=== PATIENT | female | born 1965 | race Caucasian/White ===

== ENCOUNTER → 2017-06-08 20:45 | Outpatient (CLI) | payer BC, SELFPAY ==
[2017-06-13 12:24] LABS: HPV Reflexed? NOT INDICATED
== END ==
PROVIDERS: Family Provider Family Medicine; PCP Family Medicine; Visit Provider Family Medicine
DX: Z01.419 Encounter for gynecological examination (general) (routine) without abnormal findings (principal)
CPT/HCPCS: 88175; G0145

== ENCOUNTER → 2017-06-15 10:57 | Outpatient (CLI) | payer BC, SELFPAY ==
[2017-06-15 16:54] LABS: Cholesterol 216 mg/dL (200); Follicle Stimulating Hormone 12.9 mIU/mL; High Density Lipoprotein 53 mg/dL; Thyroid Stim Hormone (TSH) 1.95 uIU/mL (0.358-3.74); Triglycerides 86 mg/dL; Very Low Density Lipoprotein 17 mg/dL (5-40)
== END ==
PROVIDERS: Family Provider Family Medicine; PCP Family Medicine; Visit Provider Family Medicine
DX: E03.9 Hypothyroidism, unspecified (principal); E78.00 Pure hypercholesterolemia, unspecified
CPT/HCPCS: 36415; 70486; 80061; 83001; 83002; 84439; 84443

== ENCOUNTER → 2018-09-06 15:32 | Outpatient (CLI) | payer BC, SELFPAY ==
[2018-09-06 18:37] LABS: Follicle Stimulating Hormone 10.3 mIU/mL; Luteinizing Hormone 2.9 mIU/mL; T4 Free Direct 1.23 ng/dL (0.76-1.46)
[2018-09-06 18:55] LABS: Vitamin D,25 Hydroxy 10.5 ng/mL (29.95-100.01)
== END ==
PROVIDERS: Family Provider Family Medicine; PCP Family Medicine; Referring Provider Family Medicine; Visit Provider Family Medicine
DX: Z00.00 Encounter for general adult medical examination without abnormal findings (principal); N92.6 Irregular menstruation, unspecified; E03.9 Hypothyroidism, unspecified; E55.9 Vitamin D deficiency, unspecified
CPT/HCPCS: 36415; 82306; 83001; 83002; 84439; 84443; 87086; 87088

== ENCOUNTER → 2018-09-15 | Outpatient (CLI) | payer BC, SELFPAY ==
--- NOTE | 2018-09-15 09:34 | BI_ITS ---
MAMMOGRAPHY - BILATERAL SCREENING REASON FOR EXAM: Female, 53 years old. Routine annual screening examination. PERTINENT HISTORY: Mother with breast cancer. Aunt with breast cancer. TECHNIQUE: Digital bilateral breast alexandru (3D mammographic acquisition) in the CC and MLO projections. 2-D mediolateral oblique (MLO) and craniocaudad (CC) views of both breasts were obtained. CAD: Full Field Digital Mammography with Computer Added Detection was performed. COMPARISON: Comparison is made with prior study dated March 23, 2015 and November 09, 2010. FINDINGS: Breast Composition: The breasts are heterogeneously dense, which may obscure small masses. There are no dominant masses or suspicious calcifications. No other significant abnormalities are identified. There has been no significant change since the prior study. BI/SCREENING MAMM (CAD), BILAT IMPRESSION: Stable bilateral screening mammogram. Yearly follow-up mammogram recommended. (A) ASSESSMENT CATEGORY: BIRADS Category 1: Negative. A letter regarding these results will be sent to the patient by the facility within 30 days. Approximately 10% of breast cancers are not detected by mammography. A normal mammogram should not delay biopsy of a clinically suspicious abnormality. [id number] Electronically Signed: Sawyer Lopez, at 8:42 EDT , Service support ,
== END | disposition home or self-care (01) ==
PROVIDERS: Family Provider Family Medicine; PCP Family Medicine; Referring Provider Family Medicine; Visit Provider Family Medicine
DX: Z12.31 Encounter for screening mammogram for malignant neoplasm of breast (principal)
CPT/HCPCS: 77063; 77067

== ENCOUNTER 2019-06-10 07:41 | Observation (INO) | payer BC, SELFPAY ==
[2019-06-10 07:42] VITALS: BP 153/125; PULSE 68; RESP 15; TEMP 36.7; O2SAT 98; BMI 31.7
--- NOTE | 2019-06-10 08:06 | US_ITS ---
STUDY: ABDOMINAL ULTRASOUND - RIGHT UPPER QUADRANT REASON FOR VISIT: Female, 53 years old RUQ PAIN TECHNIQUE: Ultrasound evaluation of the right upper quadrant was performed with real-time and static josé-scale imaging. TECHNICAL QUALITY: Adequate. COMPARISON: None. FINDINGS: Liver: The liver measures 17.2 cm. There is increased echogenicity consistent with fatty infiltration. The bile ducts are within normal limits. There is hepatic color flow. The direction of portal flow is hepatopetal. There is no demonstrated mass lesion. Gallbladder: Normal distended gallbladder. The gallbladder wall is slightly thickened and measures 4.0 mm. There is a positive sonographic Duran''s sign. There is no pericholecystic fluid. There is a solitary echogenic gallstone within the gallbladder. The gallstone is in the neck of the gallbladder. This measures 1.2 cm. Common Bile Duct (C.B.D.): The common bile duct measures 6.0 mm. Pancreas: Normal size of the head, body and tail of the pancreas. There is normal echogenicity of the pancreas. There is no demonstrated pancreatic mass or cyst. Right Kidney: Normal size of the right kidney. The right kidney measures 10.7 cm x 5.5 cm x 4.6 cm. Normal renal cortex. The right cortex measures 1.1 cm. There is no demonstrated renal mass or cyst. There is no right hydronephrosis. US/Gallbladder IMPRESSION: Gallstone in the neck of the gallbladder with a slightly thickened gallbladder wall. Fatty infiltration of the liver. Electronically Signed: Sawyer Lopez, at 10:38 EST , Service support ,
--- NOTE | 2019-06-10 08:07 | ED.DCSUM_ITS ---
History of Present Illness Chief Complaint: Abd Pain Informant: Patient - Abdominal Pain/Flank Pain Onset: Month(s) - This episode 8-10 hours Context: Gradual Onset Timing: Intermittent, Lasts - Until takes Gas-X Quality: Aching Location: Diffuse - Across top of abdomen, radiates straight through to her mid- back Current Severity: Severe Maximum Severity: Severe Worsened by: Nothing Relieved by: - - Gas-X every time this occurs, but I am out - Nausea/Vomiting/Emesis GI Symptom: Nausea, Vomiting Quality: Nonbilious. Negative for: Blood streaks, Coffee ground, Hematemesis Episodes: 3 - Diarrhea/Melena/Hematochezia GI Symptom: Negative for: Diarrhea, Melena, Hematochezia Associated Symptoms: Negative for: Dysuria, Frequency, Hematuria, Urgency Narrative: Patient states she has been getting these episodes for many years. She gets bloating which she is now as well. Symptoms usually go away with Gas-X. Given that, she has self diagnosed herself with just gas problems. She uses that as the reason why she has never talked about this issue with her doctor, even though she visits regularly, but they sometimes occur multiple times per week to the point where she has to stay home from work because she is in so much discomfort. She has no new symptoms now, but comes to the ER for the same symptoms she states because I am out of Gas-X. Prior similar symptoms: Yes Recent Illness/Hospitalization: No - Past Medical History (1) Hypothyroidism Status: Chronic Past Medical History - Allergies and Home Meds Allergies/Adverse Reactions: Allergies No Known Allergies Allergy (Verified 04/22/16 10:09) Primary Care Physician: Ian Garcia MD [Primary Care Provider] - Surgical History: - - BTL Lives: Spouse/ Significant Other Smoking Status: Former smoker Drugs: None Review of Systems General: Denies: Chills, Fever, Sweats Eyes: Denies: Visual changes - bilaterally, Diplopia ENT: Denies: Rhinorrhea, Sore throat Cardiovascular: Denies: Chest pain, Palpitations Respiratory: Denies: Dyspnea, Cough, Dyspnea on exertion Gastrointestinal: Reports: Abdominal pain - and bloating, Nausea, Vomiting. Denies: Diarrhea, Melena, Hematochezia Genitourinary: Denies: Dysuria, Hematuria, Frequency Musculoskeletal: Reports: Back pain. Denies: Extremity Pain Skin: Denies: Rash, Wounds Neurological: Denies: Headache, Weakness, Numbness Physical Exam Vital Signs/Narrative: Vital Signs Temp Pulse Resp BP Pulse Ox 06/10/19 07:42 98.1 F 68 15 153/125 H 98 Inital Vital Signs reviewed: Yes General: Well nourished, Well developed, No Acute Distress - but uncomfortable Head: Normocephalic, Atraumatic Eyes: Perrl, EOMI ENT: Moist mucous membranes, No rhinorrhea Neck: Supple, Nontender Cardiovascular: Regular rate, Regular rhythm, No murmurs Respiratory: No distress, CTA bilaterally, Chest nontender Abdomen: Soft, Normal bowel sounds, Tender - across upper abd, - - mildly distended. Negative for: Guarding, Rebound tenderness Back: Nontender, Normal Inspection. Negative for: CVA tenderness Extremities: Nontender, No edema Skin: Normal color, No rash Neurological: Alert, Oriented x3, Cranial nerves II-XII grossly intact, Normal Strength, Normal Sensation, Normal Gait Psychological: Normal affect, Normal Mood Diagnostic/Tx/Re-eval Impressions Gallbladder Ultrasound 06/10/19 08:06 IMPRESSION: Gallstone in the neck of the gallbladder with a slightly thickened gallbladder wall. Fatty infiltration of the liver. Electronically Signed: Sawyer Lopez, at 10:38 EST , Service support , 06/10/19 08:06 Gallbladder [US] Stat Laboratory Results 06/10/19 06/10/19 06/10/19 08:30 08:30 10:10 WBC 9.8 RBC 4.55 Hgb 13.9 Hct 41.7 MCV 91.6 MCH 30.5 MCHC 33.3 RDW Std Deviation 40.3 RDW Coeff of Wilbur 11.9 Plt Count 243 MPV 11.4 Immature Gran % (Auto) 0.400 Neut % (Auto) 80.2 H Lymph % (Auto) 13.3 L [place] % (Auto) 5.3 Eos % (Auto) 0.4 Baso % (Auto) 0.4 Absolute Neuts (auto) 7.9 H Absolute Lymphs (auto) 1.31 Nucleated RBC % 0 Sodium 139 Potassium 3.7 Chloride 109 H Carbon Dioxide 24.0 Anion Gap 6 BUN 11 Creatinine 0.90 Estim Creat Clear Calc 61.71 Est GFR (MDRD) Af Amer 84 Est GFR (MDRD) Non-Af 69 BUN/Creatinine Ratio 12.2 Glucose 120 H Calcium 8.8 Total Bilirubin 0.30 AST 14 L ALT 17 Alkaline Phosphatase 67 Total Protein 7.5 Albumin 3.4 Globulin 4.1 Albumin/Globulin Ratio 0.8 L Lipase 140 Urine Color Yellow Urine Clarity Sl. Cloudy Urine pH 8.0 Ur Specific [place] 1.010 Urine Protein Negative Urine Glucose (UA) Normal Urine Ketones 50 H Urine Occult Blood Negative Urine Nitrite Negative Urine Bilirubin Negative Urine Urobilinogen Normal Ur Leukocyte Esterase Negative Urine RBC 0 SEEN Urine WBC 0-5 SEEN Ur Squamous Epith Cells 0-5 SEEN Urine Bacteria 0 SEEN Urine Mucus 0 SEEN - Medical Decision Making Labs and ultrasound of the gallbladder were performed, she does not have any elevated liver enzymes or lipase, she does not have a leukocytosis at this time although her white blood count is at the high end of normal with a slight trend toward leftward shifting, no bandemia, and she has a gallstone stuck in the neck of the gallbladder with a positive sonographic Duran's. There is no dilation of the common bile duct or pericholecystic fluid to suggest that she obviously has acute cholecystitis at this time. She was given medications according to her symptoms and history, for upper GI/intestinal etiologies. After all of these medicines she feels no better, more consistent with biliary etiology of her pain. She was then given Toradol and morphine. Afterwards she has much improved and I reexamined her. She is still focally tender, now only in the right upper quadrant. Given all of this, my concern is for early cholecystitis. I discussed with Dr. Brooks who agrees; yanick ordered. ED Disposition - Plan for ED Patient: Disposition: Acute Care Hospital [facility] Diagnosis: Acute calculous cholecystitis Referrals: Ian Garcia MD [Primary Care Provider] -
[2019-06-10] MEDS: Ondansetron 4 MG/2 ML Vial IV (08:27)
[2019-06-10] MEDS: 0.9% Normal Saline 1,000 ML 125 ML IV ×2 (08:29→15:37)
[2019-06-10] MEDS: Mag Hydrox/Al Hydrox/Simeth 30 ML UDC PO ×2 (08:29→09:11)
[2019-06-10] MEDS: Dicyclomine 20 MG/2 ML Vial IM (08:29)
[2019-06-10 08:40] LABS: Absolute Lymphocyte Count 1.31 X10^3/uL (0.83-4.51); Absolute Neutrophil Count 7.9 X10^3/uL (2.0-7.7); Basophil# 0.04 X10^3/uL; Basophil% 0.4 % (0-1); Eosinophil# 0.04 X10^3/uL; Eosinophils% 0.4 % (0-5); Hematocrit 41.7 % (37-47); Hemoglobin 13.9 g/dL (12.0-15.0); Lymphocyte # 1.31 X10^3/ul (4.0); Lymphocyte % 13.3 % (19-41); Mean Corp Hgb Conc 33.3 g/dL (32-36); Mean Corpuscular Hgb 30.5 pg (27.0-32.0); Mean Corpuscular Volume 91.6 fL (81-99); Mean Platelet Vol. 11.4 fl (6.2-12.0); Monocyte# 0.52 X10^3/uL; Monocyte% 5.3 % (0-10); NRBC Flagged by Analyzer 0 % (0-5); Neutrophil # 7.87 X10^3/uL (2.7-7.7); Neutrophil % 80.2 % (47-70); Platelet Count 243 K/mm3 (150-450); RBC Distribution Width CV 11.9 % (11.6-14.6); RBC Distribution Width SD 40.3 fl (35.1-43.9); Red Blood Count 4.55 M/mm3 (4.2-5.4); White Blood Count 9.8 K/mm3 (4.4-11.0)
[2019-06-10 08:55] LABS: ALB/GLOB Ratio 0.8 RATIO (0.9-2.4); AST(SGOT) 14 U/L (15-37); Alanine Aminotransfer ALT/SGPT 17 U/L (13-56); Albumin, Serum 3.4 g/dL (3.2-5.0); Alkaline Phosphatase 67 U/L (45-117); Anion Gap 6 (5-15); BUN 11 mg/dL (7-18); BUN/Creat Ratio 12.2 RATIO (10-20); Calcium,Total 8.8 mg/dL (8.5-10.1); Chloride 109 mmol/L (98-107); EST Glomerular Filtration Rate 69 mL/min (>60); Est Glom Filt Rate - Afr Amer 84 mL/min (>60); Estimated Creatinine Clearance 61.71 ml/min; Globulin 4.1 g/dL (2.2-4.2); Glucose 120 mg/dL (74-106); Lipase 140 U/L (73-393); Potassium 3.7 mmol/L (3.5-5.1); Protein, Total 7.5 g/dL (6.4-8.2); Sodium Level 139 mmol/L (136-145)
[2019-06-10 10:18] LABS: Bacteria 0 SEEN /hpf (None Seen); Mucous, Urine 0 SEEN /hpf (<or=2+); Red Blood Cells-Urine 0 SEEN /hpf (0-5)
[2019-06-10 10:25] LABS: Color, Urine Yellow (Yellow); Glucose, Dipstick Normal (Normal); Ketone-Dipstick 50 mg/dl (Negative); Leukocyte Esterase-Dipstick Negative /ul (Negative); Nitrite-Dipstick Negative (Negative); Occult Blood-Urine Negative /ul (Negative); Protein-Dipstick Negative (Negative); Urine Bilirubin Dipstick Negative (Negative); Urine Clarity Sl. Cloudy (Clear); Urine Urobilinogen Normal (Normal)
[2019-06-10 10:47] LABS: Squamous Epithelial Cells - UA 0-5 SEEN /hpf (5-10); White Blood Cells 0-5 SEEN /hpf (0-5)
[2019-06-10 11:06] VITALS: RESP 18
[2019-06-10] MEDS: Morphine 4 MG/ML Syringe IV (12:01)
[2019-06-10] MEDS: Ketorolac 15 MG/ML Vial IV (12:01)
[2019-06-10 13:06] VITALS: RESP 18
--- NOTE | 2019-06-10 13:42 | HP.PCM_ITS ---
History of Present Illness Date of Admission: 06/10/19 The patient is a 53 year old F presented to the ER due to epigastric/right upper quadrant and mid back pain that began at 12:20 AM this morning. Patient also had bloating along with this. Patient has had this occasionally for the last couple of years. She is just taking Gas-X for is typically gone away however she did get some Gas-X and it did not improve and then she had some nausea and vomiting. Work-up in the ER showed a normal white blood count with a left shift, normal LFTs, ultrasound showed gallbladder wall of 4 mm, gallbladder stone at the neck of the gallbladder, no pericholecystic fluid, normal common bile duct. Patient also states she does have reflux symptoms any H2 inhibitors or Tums or PPI. Past Medical History Past Medical History (Chronic Problems): Chronic Problems Hypothyroidism (Chronic) Allergies No Known Allergies Allergy (Verified 04/22/16 10:09) Home Medications: Ambulatory Orders Medication Instructions Recorded Echinacea Root/Goldenseal Root 2 cap PO DAILY 06/10/19 [Echinac-Goldenseal 250-250 mg] Ibuprofen [Advil] 400 mg PO DAILY PRN PRN 06/10/19 Ibuprofen/Pseudoephedrine HCl 1 tab PO DAILY PRN PRN 06/10/19 [Advil Cold & Sinus Caplet] Levothyroxine Sodium 100 mcg PO DAILY 06/10/19 Norgestimate-Ethinyl Estradiol 1 tab PO DAILY 06/10/19 [Norg-Ee 0.18-0.215-0.25/0.025] Surgical History: - - Tube ligation Psychiatric History: 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 Denies: Diarrhea Genitourinary: Denies: Dysuria VTE Information - Inpt Only VTE Present on Admission: Yes VTE Mechan Device Prophylaxis: SCD's VTE Pharm Prophylaxis ordered?: No Reason prophylaxis not ordered:: Treatment Not Indicated Patient Problems: Active and Suspected Problems Acute calculous cholecystitis (Acute) - Physical Exam Vitals/I&O's: Vital Signs Temp Pulse Resp BP Pulse Ox 98.1 F 68 18 153/125 H 98 06/10/19 07:42 06/10/19 07:42 06/10/19 13:06 06/10/19 07:42 06/10/19 07:42 Oxygen Delivery Method Room Air Weight: 185 lb Body Mass Index (BMI) 31.7 General: Alert, Oriented x3, Cooperative, No apparent distress HEENT: Atraumatic Lungs: Normal air movement Cardiovascular: Regular rate Abdomen: Soft, Non-Distended, Tender - Minimal epigastric/right upper quadrant tenderness, no peritoneal signs Extremities: No clubbing, No cyanosis, No edema Neurological: Cranial nerves II-XII grossly intact Psych/Mental Status: Normal Affect Laboratory Results 06/10/19 08:30: WBC 9.8, RBC 4.55, Hgb 13.9, Hct 41.7, MCV 91.6, MCH 30.5, MCHC 33.3, RDW Std Deviation 40.3, RDW Coeff of Wilbur 11.9, Plt Count 243, MPV 11.4, Immature Gran % (Auto) 0.400, Neut % (Auto) 80.2 H, Lymph % (Auto) 13.3 L, [place] % (Auto) 5.3, Eos % (Auto) 0.4, Baso % (Auto) 0.4, Absolute Neuts (auto) 7.9 H, Absolute Lymphs (auto) 1.31, Nucleated RBC % 0 06/10/19 08:30: Sodium 139, Potassium 3.7, Chloride 109 H, Carbon Dioxide 24.0, Anion Gap 6, BUN 11, Creatinine 0.90, Estim Creat Clear Calc 61.71, Est GFR (MDRD) Af Amer 84, Est GFR (MDRD) Non-Af 69, BUN/Creatinine Ratio 12.2, Glucose 120 H, Calcium 8.8, Total Bilirubin 0.30, AST 14 L, ALT 17, Alkaline Phosphatase 67, Total Protein 7.5, Albumin 3.4, Globulin 4.1, Albumin/Globulin Ratio 0.8 L, Lipase 140 06/10/19 10:10: Urine Color Yellow, Urine Clarity Sl. Cloudy, Urine pH 8.0, Ur Specific [place] 1.010, Urine Protein Negative, Urine Glucose (UA) Normal, Urine Ketones 50 H, Urine Occult Blood Negative, Urine Nitrite Negative, Urine Bilirubin Negative, Urine Urobilinogen Normal, Ur Leukocyte Esterase Negative, Urine RBC 0 SEEN, Urine WBC 0-5 SEEN, Ur Squamous Epith Cells 0-5 SEEN, Urine Bacteria 0 SEEN, Urine Mucus 0 SEEN Current Medications Sodium Chloride () 1,000 mls @ 125 mls/hr IV .Q8H MAHI Last Admin: 06/10/19 08:29 Dose: 125 mls/hr Documented by: Assessment/Plan All Active Problems Acute calculous cholecystitis (Acute) 53-year-old female with acute calculus cholecystitis 1. N.p.o./IV fluids/Zosyn 3.375 g IV every 8 for acute cholecystitis 2. Reviewed the anatomy with the patient and discussed the procedure: laparoscopic cholecystectomy with possible cholangiograms, possible open. Review risks including but not limited to bleeding, infection, hernia, bile leak, retained gallstones requiring another procedure ERCP- Endoscopic Retrograde Cholangiopancreatography, injury to another organ (bile ducts, common bile duct, small bowel, etc.) which may require her to a tertiary care facility and conversion to an open procedure. All questions were answered. Lianna Brooks M.D. Pager: [phone] [facility] [address] [place] [address], [facility], [address] [place] [address] Office: [phone] Code Visit Inpatient E&M: 70752 Init Hosp L2
--- NOTE | 2019-06-10 13:50 | EKG12_ITS ---
Test Reason : PREOP Blood Pressure : / mmHG Vent. Rate : 067 BPM Atrial Rate : 067 BPM P-R Int : 110 ms QRS Dur : 078 ms QT Int : 458 ms P-R-T Axes : 058 026 039 degrees QTc Int : 483 ms Sinus rhythm with short WI Prolonged QT Abnormal ECG No previous ECGs available Confirmed by BARBARA HOSKINS, SAFIA ([id number]), assignment desk editor PARVEZ MCKEON ([id number]) on 06/24/2019 2:48:54 PM Referred By: MAMADOU Confirmed By:LIZET JIMENEZ MD
[2019-06-10 14:32] VITALS: BMI 32.3
[2019-06-10 14:33] VITALS: BP 138/69; PULSE 60; RESP 16; TEMP 36.9; O2SAT 100
[2019-06-10 14:34] VITALS: BMI 32.4
[2019-06-10] MEDS: HYDROmorphone 0.5 MG/0.5 ML SYRINGE IV (15:37)
[2019-06-10 20:30] VITALS: BP 104/60; PULSE 75; RESP 16; TEMP 36.8; O2SAT 98
[2019-06-11] VITALS (12 sets, daily range): BP systolic 103–135; BP diastolic 55–72; PULSE 71–91; RESP 16–18; TEMP 36.2–37.6; O2SAT 94–98; BMI 32.3
--- NOTE | 2019-06-11 | GALL_PTH ---
PATIENT: KRYSTINA GILBERT LOC: MS3 U#:[id number] AGE/SX: 53/F ROOM: [facility] [place] RE06/10/[address]: Dr. Lianna Brooks MD : [id number] BED: 1 DIS: 06/11/2019 SPEC #: [id number] RECD: 06/11/19 13:59 STATUS: LEOPOLDO REThao #: [id number] REGULO: 06/11/19 00:[address]: Lianna Brooks DEPT: SURGICAL PATHOLOGY RECD BY: Isidoro Munoz ENTERED: 06/11/19 14:32 SP TYPE: KHALIDA CHONG DR: Dr. Timothy Garcia MD Tissues: Gallbladder, NOS Procedures: Surgery Specimen Level III HEADER OPERATION: Laparoscopic, cholecystectomy with IOC PRE-OP DIAGNOSIS: Acute calculous cholecystitis (acute) TISSUE SUBMITTED: Gallbladder MICROSCOPIC DIAGNOSIS Gallbladder, cholecystectomy: Cholesterolosis, acute and chronic cholecystitis and cholelithiasis. AM:steve 06/12/19 MICROSCOPIC DESCRIPTION Slides are reviewed. GROSS DESCRIPTION Received is one container labeled with the patient's name and designated gallbladder. The specimen consists of a gallbladder measuring 9.5 cm in length and up to 4 cm in diameter. The serosa is congested. The external surface is pink-ch, smooth and glistening for the most part. Focally it is granular, hemorrhagic and contains cautery artifact. The gallbladder contains hemorrhagic bile and one avoid, greenish-yellow stone measuring 2 x 1.5 x 1.5 cm. The mucosa also shows several yellowish streaks consistent with cholesterolosis. The mucosa is bile-stained and without any mass lesions. The gallbladder wall measures up to 0.3 cm in thickness. Bucket Pusher sections from the gallbladder and the cystic duct are submitted in one cassette. / SJ:steve 06/11/19 TC:2 CPT: 56467
[2019-06-11] MEDS: Ketorolac 15 MG/ML Vial IV (04:52)
[2019-06-11] MEDS: 0.9% Normal Saline 1,000 ML 125 ML IV (04:55)
[2019-06-11 05:55] LABS: Absolute Lymphocyte Count 1.84 X10^3/uL (0.83-4.51); Absolute Neutrophil Count 5.9 X10^3/uL (2.0-7.7); Basophil# 0.05 X10^3/uL; Basophil% 0.6 % (0-1); Eosinophils% 1.2 % (0-5); Hematocrit 37.6 % (37-47); Lymphocyte # 1.84 X10^3/ul (4.0); Lymphocyte % 21.5 % (19-41); Mean Corp Hgb Conc 31.9 g/dL (32-36); Mean Corpuscular Hgb 29.8 pg (27.0-32.0); Mean Corpuscular Volume 93.3 fL (81-99); Monocyte# 0.62 X10^3/uL; Monocyte% 7.3 % (0-10); NRBC Flagged by Analyzer 0 % (0-5); Neutrophil # 5.92 X10^3/uL (2.7-7.7); Neutrophil % 69.3 % (47-70); Platelet Count 195 K/mm3 (150-450); RBC Distribution Width CV 12.4 % (11.6-14.6); RBC Distribution Width SD 42.7 fl (35.1-43.9); Red Blood Count 4.03 M/mm3 (4.2-5.4); White Blood Count 8.5 K/mm3 (4.4-11.0)
[2019-06-11 06:23] LABS: AST(SGOT) 11 U/L (15-37); Alanine Aminotransfer ALT/SGPT 13 U/L (13-56); Albumin, Serum 2.5 g/dL (3.2-5.0); Alkaline Phosphatase 59 U/L (45-117); Anion Gap 7 (5-15); BUN 6 mg/dL (7-18); BUN/Creat Ratio 7.2 RATIO (10-20); Bilirubin, Direct 0.12 mg/dL (0.00-0.30); Calcium,Total 7.5 mg/dL (8.5-10.1); Chloride 110 mmol/L (98-107); Creatinine, Serum 0.83 mg/dL (0.55-1.02); EST Glomerular Filtration Rate 76 mL/min (>60); Est Glom Filt Rate - Afr Amer 92 mL/min (>60); Estimated Creatinine Clearance 66.91 ml/min; Globulin 3.6 g/dL (2.2-4.2); Glucose 95 mg/dL (74-106); Potassium 3.7 mmol/L (3.5-5.1); Protein, Total 6.1 g/dL (6.4-8.2); Sodium Level 140 mmol/L (136-145); Thyroid Stim Hormone (TSH) 2.91 uIU/mL (0.358-3.74)
--- NOTE | 2019-06-11 08:06 | PN.SURG_ITS ---
Patient Problems: Active and Suspected Problems Acute calculous cholecystitis (Acute) Subjective: Patient denies abdominal pain pain has been controlled with Toradol. Patient's white blood count still within normal limits with resolution of the left shift patient is on Zosyn IV - Physical Exam Vitals/I&O's: Vital Signs Temp Pulse Resp BP Pulse Ox 98.5 F 71 16 103/55 L 95 06/11/19 02:30 06/11/19 02:30 06/11/19 02:30 06/11/19 02:30 06/11/19 02:30 Oxygen Delivery Method Room Air Weight: 188 lb 7.924 oz Body Mass Index (BMI) 32.3 Intake and Output for Last 24 Hours 06/09/19 06/10/19 06/11/19 23:59 23:59 23:59 Intake Total 2151.67 / 2151.67 50 / 50 Output Total 650 / 650 Balance 2151.67 / 1901.67 -600 / -600 General: Alert, Oriented x3, Cooperative, No apparent distress Lungs: Normal air movement Cardiovascular: Regular rate Abdomen: Soft, Non Tender, Non-Distended Extremities: No clubbing, No cyanosis, No edema Neurological: Cranial nerves II-XII grossly intact Psych/Mental Status: Normal Affect Laboratory Results 06/10/19 08:30: WBC 9.8, RBC 4.55, Hgb 13.9, Hct 41.7, MCV 91.6, MCH 30.5, MCHC 33.3, RDW Std Deviation 40.3, RDW Coeff of Wilbur 11.9, Plt Count 243, MPV 11.4, Immature Gran % (Auto) 0.400, Neut % (Auto) 80.2 H, Lymph % (Auto) 13.3 L, [place] % (Auto) 5.3, Eos % (Auto) 0.4, Baso % (Auto) 0.4, Absolute Neuts (auto) 7.9 H, Absolute Lymphs (auto) 1.31, Nucleated RBC % 0 06/10/19 08:30: Sodium 139, Potassium 3.7, Chloride 109 H, Carbon Dioxide 24.0, Anion Gap 6, BUN 11, Creatinine 0.90, Estim Creat Clear Calc 61.71, Est GFR (MDRD) Af Amer 84, Est GFR (MDRD) Non-Af 69, BUN/Creatinine Ratio 12.2, Glucose 120 H, Calcium 8.8, Total Bilirubin 0.30, AST 14 L, ALT 17, Alkaline Phosphatase 67, Total Protein 7.5, Albumin 3.4, Globulin 4.1, Albumin/Globulin Ratio 0.8 L, Lipase 140 06/10/19 10:10: Urine Color Yellow, Urine Clarity Sl. Cloudy, Urine pH 8.0, Ur Specific [place] 1.010, Urine Protein Negative, Urine Glucose (UA) Normal, Urine Ketones 50 H, Urine Occult Blood Negative, Urine Nitrite Negative, Urine Bilirubin Negative, Urine Urobilinogen Normal, Ur Leukocyte Esterase Negative, Urine RBC 0 SEEN, Urine WBC 0-5 SEEN, Ur Squamous Epith Cells 0-5 SEEN, Urine Bacteria 0 SEEN, Urine Mucus 0 SEEN 06/11/19 05:10: WBC 8.5, RBC 4.03 L, Hgb 12.0, Hct 37.6, MCV 93.3, MCH 29.8, MCHC 31.9 L, RDW Std Deviation 42.7, RDW Coeff of Wilbur 12.4, Plt Count 195, MPV 12.0, Immature Gran % (Auto) 0.100, Neut % (Auto) 69.3, Lymph % (Auto) 21.5, [place] % (Auto) 7.3, Eos % (Auto) 1.2, Baso % (Auto) 0.6, Absolute Neuts (auto) 5.9, Absolute Lymphs (auto) 1.84, Nucleated RBC % 0 06/11/19 05:10: Sodium 140, Potassium 3.7, Chloride 110 H, Carbon Dioxide 23.0, Anion Gap 7, BUN 6 L, Creatinine 0.83, Estim Creat Clear Calc 66.91, Est GFR (MDRD) Af Amer 92, Est GFR (MDRD) Non-Af 76, BUN/Creatinine Ratio 7.2 L, Glucose 95, Calcium 7.5 L, Total Bilirubin 0.50, Direct Bilirubin 0.12, AST 11 L, ALT 13, Alkaline Phosphatase 59, Total Protein 6.1 L, Albumin 2.5 L, Globulin 3.6, TSH 2.91 Current Medications Hydromorphone HCl (Dilaudid Inj) 0.5 - 1 mg IV Q2H PRN PRN PRN Reason: Pain Score 1-02/07 Last Admin: 06/10/19 15:37 Dose: 0.5 mg Documented by: Piperacillin Sod/Tazobactam (Sod 3.375 gm/ Sodium Chloride) 50 mls @ 12.5 mls/hr IV Q8 [facility] Last Admin: 06/11/19 04:55 Dose: 12.5 mls/hr Documented by: Pantoprazole Sodium 40 mg/ (Sodium Chloride) 110 mls @ 330 mls/hr IV Q24 [facility] Sodium Chloride () 1,000 mls @ 125 mls/hr IV .Q8H [facility] Last Admin: 06/11/19 04:55 Dose: 125 mls/hr Documented by: Ketorolac Tromethamine (Toradol (Bkc)) 15 mg IV Q6H PRN PRN PRN Reason: Pain Score 1-02/07 Last Admin: 06/11/19 04:52 Dose: 15 mg Documented by: Levothyroxine Sodium (Synthroid) 100 mcg PO DAILY@0600 [facility] Last Admin: 06/11/19 04:55 Dose: Not Given Documented by: Ondansetron HCl (Zofran) 4 mg IV Q8H PRN PRN PRN Reason: NAUSEA Sodium Chloride () 10 - 40 ml IV UD PRN PRN Reason: SALINE FLUSH Medical Necessity - Tobacco Use Smoking Status: Former smoker Tobacco Use: Cigarettes Assessment/Plan All Active Problems Acute calculous cholecystitis (Acute) 53-year-old female with acute calculus cholecystitis 1. N.p.o./IV fluids/Zosyn 3.375 g IV every 8 for acute cholecystitis 2. Plan for laparoscopic cholecystectomy today Lianna Brooks M.D. Pager: [phone] [facility] [address] [place] [address], [facility], [address] [place] [address] Office: [phone] Code Visit Inpatient E&M: 79855 Subs Hosp L1
[2019-06-11] MEDS: Lactated Ringers 1,000 ML 100 ML IV ×2 (11:15→12:58)
[2019-06-11] MEDS: Bupivacaine Mpf 0.5% 30 ML VIAL (11:50)
--- NOTE | 2019-06-11 12:16 | OP.PCM_ITS ---
Report of Operation Date of Procedure: 06/11/19 Pre-Operative Diagnosis: Acute calculus cholecystitis Post-Operative Diagnosis: Same Surgery/Procedure Performed:: Laparoscopic cholecystectomy with cholangiograms catalytic converter operator helper: Sonja Leyva Type of Anesthesia:: General/Supplemental Anesthesiologist: Cody Gil Special Medications: Patient on Zosyn 3.375 g IV every 8 hours on the floor for acute cholecystitis Specimen's removed: Gallbladder Estimated Blood Loss (mL): 10 cc Fluids Replaced: 700 cc Description of Procedure: Indications this is a 53 year-old female who developed abdominal pain/nausea/vomiting and on workup was found to have cholelithiasis, acute cholecystitis, with a normal common bile duct. Laparoscopic cholecystectomy was elected. Description procedure: The patient was placed on operating table in supine position. General Anesthesia was induced. A timeout was completed verifying correct patient, procedure, site, position and special equipment prior to beginning procedure. The abdomen was prepped and draped in usual sterile fas hion. An incision was made in the natural skin line above the umbilicus. The fascia was elevated and incised. The peritoneum was elevated and incised. Entry into the peritoneum was confirmed visually and no bowel was noted in the vicinity of the incision. Barnard trocar was placed. The abdomen was insufflated with carbon dioxide to a pressure of 12-15 mmHg. Patient tolerated insufflation well. The laparoscope was then inserted and abdomen inspected. No injuries from initial trocar placement were noted. Additional trochars were then inserted in the following locations 5 mm trocar in the epigastrium and 2 more 5 mm trochars along the right costal margin. The abdomen was inspected no abnormalities were found. The table is placed in reverse Trendelenburg position with the right side up. The gallbladder was distended and the mucosa was erythematous. An aspiration needle was used to decompress the gallbladder. The adhesions between the gallbladder and omentum were lysed sharply. The dome of the gallbladder was grasped with atraumatic grasper passed through the lateral port and retracted over the dome of the liver. Infundibulum was then grasped with atraumatic grasper through the midclavicular port and retracted to the right lower quadrant. This maneuver exposed Calot's triangle. The peritoneum overlying the gallbladder infundibulum was then incised and cystic duct and artery identified and circumferentially dissected. Batista catheter was used for cholangiograms. The cholangiogram showed good filling of the common bile duct into the duodenum with no filling defects, good filling of the right and left bile ducts as well. The cystic duct and artery were then doubly clipped and divided close to the gallbladder. The gallbladder then dissected from its peritoneal attachments by electrocautery. Hemostasis was checked and the gallbladder and contained stones were removed using the endoscopic retrieval bag through the umbilical port. The gallbladder is passed off table as specimen. The gallbladder fossa was copiously irrigated with saline and hemostasis obtained. There is no evidence of bleeding from the gallbladder fossa or cystic artery leakage of bile from the cystic duct stump. Secondary trochars removed under direct vision. No bleeding was noted the trocar sites. The laparoscope was withdrawn and umbilical trocar removed. The abdomen was allowed to collapse. The fascia of the 12 mm trocar was closed with a [id number] 0 Vicryl suture. The skin was closed with sutures of 4-0 Monocryl and Steri-Strips. The orogastric tube was removed and the patient was extubated. The patient tolerated procedure well and was taken to the postanesthesia care unit in stable condition. - Complications none
--- NOTE | 2019-06-11 12:17 | NURSING ---
Student documentation reviewed.
--- NOTE | 2019-06-11 12:19 | DCINST_ITS ---
Discharge Diet: Light diet - advance as tolerated Discharge Activity: May not drive while taking narcotic pain medications. May shower in (days): 1 - Keep Steri-Strips on for 7 to 10 days and then drop off in 10 days okay to remove Lifting Restrictions: No lifting greater than 20 pounds x 2 weeks Call your doctor if your incision/area has: Continuous Slow Oozing, Sudden Increased Bleeding, Increased Pain/ Swelling, Increased Redness, Foul Smelling Discharge, Swelling at the incision site Call your doctor if you observe: Fever of 101 or Higher Remove Dressing in (days):: 1 - Okay to remove op sites tomorrow keep Steri's on for 7 to 10 days, okay to remove after 10 days Additional Instructions: Okay to take ibuprofen 400-600 mg PO q6hr PRN along with the Percocet. Avoid Tylenol since there is already Tylenol in the Percocet. Take all pain meds with food. Percocet can cause constipation recommend taking daily stool softener (i.e. Colace/docusate) while taking the pain meds. Recommend starting some MiraLAX in 1 to 2 days if no bowel movement. If still no bowel movement following day recommend taking magnesium citrate half the bottle and waiting 4-6 hours if still no results take the other half the bottle. Allergies/Adverse Reactions: Allergies No Known Allergies Allergy (Verified 04/22/16 10:09) Medications to take at Discharge Echinacea Root/Goldenseal Root [Echinac-Goldenseal 250-250 mg] 2 cap PO DAILY 06/10/19 Ibuprofen [Advil] 400 mg PO DAILY PRN PRN 06/10/19 Ibuprofen/Pseudoephedrine HCl [Advil Cold & Sinus Caplet] 1 tab PO DAILY PRN PRN 06/10/19 Levothyroxine Sodium 100 mcg PO DAILY 06/10/19 Norgestimate-Ethinyl Estradiol [Norg-Ee 0.18-0.215-0.25/0.025] 1 tab PO DAILY 06/10/19 Oxycodone HCl/Acetaminophen [Percocet 5/325] 1 - 2 tab PO Q6H PRN PRN 4 Days #20 tab 06/11/19 Pantoprazole Sodium 40 mg PO DAILY #30 tablet. 06/11/19 The following prescriptions were given: Pantoprazole Sodium 40 mg PO DAILY #30 tablet.dr Transmission Status: Sent to [facility] Oxycodone HCl/Acetaminophen [Percocet 5/325] 1 - 2 tab PO Q6H PRN PRN 4 Days #20 tab PRN Reason: Pain Transmission Status: Sent to [facility] Primary Care Physician: Ian Garcia MD [Primary Care Provider] - Test Results: Test results from this visit will be discussed in further detail at your follow- up appointment, if applicable. Please Follow Up With: Lianna Brooks MD - After 5 PM and on the weekends call [phone] with any concerns When: Call the office [phone] for a follow-up in 2 weeks Proposed Discharge Date: 06/11/19
[2019-06-11] MEDS: proMETHazine 25 MG/ML Syringe 12.5 MG IV (13:02)
--- NOTE | 2019-06-11 14:20 | RAD_ITS ---
STUDY: INTRAOPERATIVE CHOLANGIOGRAM. REASON FOR EXAM: Female, 53 years old. RUQ pain -- lap megan FLUOROSCOPY TIME (if supplied): ( 7.9 seconds ) minutes/seconds TECHNIQUE: N IntraDop Cholangiogram was performed by the surgeon. Imaging was submitted. COMPARISON: None. FINDINGS: The intrahepatic biliary ducts are unremarkable. The common bile duct is not dilated. There is free flow of contrast into the duodenum. RAD/Cholangiogram/ O R,Initial IMPRESSION: Unremarkable intraoperative cholangiogram. Electronically Signed: Sawyer Lopez, at 8:34 EST , Service support ,
== END 2019-06-11 19:50 | disposition home or self-care (01) ==
LOC: ED 13:05 → MS3 14:49
PROVIDERS: Admitting Provider Surgery; Emergency Provider Emergency Medicine; PCP Family Medicine; Visit Provider Surgery
PROC: (CPT 47610; principal; 2019-06-11 14:00)
DX: R10.9 Unspecified abdominal pain (principal); K80.12 Calculus of gallbladder with acute and chronic cholecystitis without obstruction; E03.9 Hypothyroidism, unspecified; Z79.899 Other long term (current) drug therapy; Z87.891 Personal history of nicotine dependence
CPT/HCPCS: 00790; 47563; 36415; 74300; 76000; 76705; 80048; 80053; 80076; 81001; 83690; 84443; 85025; 88304; 93005; 96361; 96365; 96366; 96367; 96372; 96375; 96376; 99218; 99251; 99284; J7030; J7120; A4216; G0378; G0463; J2405

== ENCOUNTER → 2020-02-14 | Outpatient (CLI) | payer BC, SELFPAY ==
[2019-06-11 10:29] VITALS: BMI 32.3
== END | disposition home or self-care (01) ==
PROVIDERS: PCP Family Medicine; Visit Provider Family Medicine
DX: J32.9 Chronic sinusitis, unspecified (principal)
CPT/HCPCS: 87635; U0003

== ENCOUNTER 2020-04-22 16:30 | Outpatient (RCR) | payer BC, SELFPAY ==
[2019-06-11 10:29] VITALS: BMI 32.3
--- NOTE | 2020-02-05 15:56 | HP.PTEVAL ---
Patient's Visit Information KRYSTINA GILBERT is a 54 year old F referred to Physical Therapy by Dr. Ian Garcia MD with a diagnosis of Adhesive capsulitis, R labral tear. Date of Evaluation: 01/29/20 Physical Therapist: Jimbo Wright DPT - Visit Plan Frequency: 1-2x /Week Duration: 6 Weeks Plan: Plan to inc R shoulder ROM and strength while facilitating a dec in pain. Initially work on increasing PROM and progressing into AROM and strengthening w/ the new available range. - Subjective Pt presented for eval this date w/ c/o R shoulder pain. 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 Dr diagnosed her w/ a R labral tear and adhesive capsulitis. Was supposed to have surgical manipulation done in July but decided not to. Had massage therapy in September and October and believes that is helped a lot w/ pain and ROM. Denies having sleeping issues d/t pain. States she had to stop going to yoga after injury, but would like to return. Pt's main concerns are returning to yoga and being able to reach into cabinets overhead. Takes Aleve PRN. - Pain R shoulder Pain Intensity (Out of 10): 0 Pain Intensity Range: 0, 3 - Objective POSTURE: WNL. PALPATION: WNL. ROM: R shoulder flex 114 deg, ext 14 deg, abd 90 deg, IR 62 deg, ER 29 deg. Empty end-feels d/t pain at end-range in all planes. MMT: R shoulder ext/IR 4+/5, flex/abd 4-/5, ER 3+/5. L shoulder ext 5/5, flex/abd/IR 4+/5, ER 4-/5. No c/o of pain during testing. NEURO: Denies n/t, WNL. - Goals Goal 1:: LTG: Pt to be I w/ HEP. Goal Time Frame: 4-6 Weeks Goal 2:: STG: Pt will display inc R shoulder ROM by 10% in all planes. Goal Time Frame: 2-4 Weeks Goal 3:: LTG: Pt will display inc R shoulder ROM by 25% in all planes. Goal Time Frame: 4-6 Weeks Goal 4:: LTG: Pt will display inc R shoulder strength by 1/2 grade throughout. Goal Time Frame: 4-6 Weeks Goal 5:: LTG: Pt will report no R shoulder pain w/ daily activities. Goal Time Frame: 4-6 Weeks - Rehabilitation Potential Physical Therapy Diagnosis: S/s consistent w/ R shoulder adhesive capsulitis and R shoulder labral tear. Pt displays dec R shoulder strength, dec ROM, and inc pain. PT intervention indicated to address stated deficits and improve R shoulder strength, ROM, and facilitate reduced pain. Rehabilitation Potential: Good - Anticipated Interventions Patient/Client Instruction: Educate patient on: Condition, Plan of Care, Risk Factors, Benefits of Fitness Program For the Purpose of:: To facilitate caregiver knowledge, To improve self management, To prevent re-injury, To improve ability to perform tasks related to life management, To improve tolerance to ADL's Therapeutic Exercise to Include: Strength training, Power training, Endurance training, Flexibilty training, Passive ROM, Active ROM, Marian Exercises, Scapular Strength/Stabilization For the Purpose of:: To decrease pain, To decrease swelling/inflammation, To increase ROM, To improve nutrient delivery to tissue, To increase oxygenation perfusion, To improve muscle performance and motor function, To improve health of tissue, To decrease soft tissue restriction, To increase flexibility/ROM Manual Therapy Techniques to Include: Mobilization, Manipulation, Passive ROM, Soft tissue mobilization For the Purpose of:: To decrease pain, To decrease swelling/inflammation, To increase ROM, To improve nutrient delivery to tissue, To increase oxygenation perfusion, To improve muscle performance and motor function Cryotherapy (ice pack, ice massage): Yes Thermo therapy (hot pack): Yes For the Purpose of:: To decrease pain, To increase ROM, To improve nutrient delivery to tissue, To increase oxygenation perfusion, To improve muscle performance and motor function Thank you for the opportunity to evaluate your patient. For Medicare and Medicare HMO plans, please review the plan of care and approve it. It will need to be FAXED BACK to us at [phone] for Medicare purposes. For Medicare only, by signing this I certify the plan of care. Please let me know if there are questions or concerns regarding this plan of care. Physician Signature: Date:
== END 2020-04-22 19:00 | disposition home or self-care (01) ==
LOC: PT 16:30
PROVIDERS: PCP Family Medicine; Referring Provider Family Medicine; Visit Provider Family Medicine
DX: M75.01 Adhesive capsulitis of right shoulder (principal); S43.431D Superior glenoid labrum lesion of right shoulder, subsequent encounter
CPT/HCPCS: 97110; 97140; 97161

== ENCOUNTER 2020-07-31 14:39 | Outpatient (RCR) | payer BC, SELFPAY ==
[2019-06-11 10:29] VITALS: BMI 32.3
== END 2020-10-06 23:59 ==
LOC: IMMUN 14:39
PROVIDERS: PCP Family Medicine; Visit Provider Family Medicine
DX: Z23 Encounter for immunization (principal)
CPT/HCPCS: 0001A; 0002A; 91300

== ENCOUNTER → 2020-08-05 | Outpatient (CLI) | payer BC, SELFPAY ==
[2019-06-11 10:29] VITALS: BMI 32.3
[2020-08-10 16:20] LABS: HPV Reflexed? NOT INDICATED
== END | disposition home or self-care (01) ==
LOC: LABSPEC 14:34
PROVIDERS: PCP Family Medicine; Referring Provider Family Medicine; Visit Provider Family Medicine
DX: Z01.419 Encounter for gynecological examination (general) (routine) without abnormal findings (principal)
CPT/HCPCS: 88175; G0145

== ENCOUNTER → 2021-04-14 09:01 | Outpatient (CLI) | payer BC, SELFPAY ==
[2021-04-14 10:15] LABS: Absolute Lymphocyte Count 1.55 X10^3/uL (0.83-4.51); Absolute Neutrophil Count 3.4 X10^3/uL (2.0-7.7); Basophil# 0.05 X10^3/uL; Basophil% 0.9 % (0-1); Eosinophil# 0.15 X10^3/uL; Eosinophils% 2.7 % (0-5); Hematocrit 41.4 % (37-47); Hemoglobin 13.3 g/dL (12.0-15.0); Lymphocyte # 1.55 X10^3/ul (0.83-4.51); Mean Corp Hgb Conc 32.1 g/dL (32-36); Mean Corpuscular Volume 93.2 fL (81-99); Mean Platelet Vol. 11.6 fl (6.2-12.0); Monocyte# 0.41 X10^3/uL; Monocyte% 7.4 % (0-10); NRBC Flagged by Analyzer 0 % (0-5); Neutrophil # 3.36 X10^3/uL (2.7-7.7); Neutrophil % 60.8 % (47-70); Platelet Count 256 K/mm3 (150-450); RBC Distribution Width CV 12.2 % (11.6-14.6); RBC Distribution Width SD 42.1 fl (35.1-43.9); Red Blood Count 4.44 M/mm3 (4.2-5.4); White Blood Count 5.5 K/mm3 (4.4-11.0)
[2021-04-14 10:52] LABS: AST(SGOT) 14 U/L (15-37); Alanine Aminotransfer ALT/SGPT 19 U/L (13-56); Amylase 51 U/L (25-115); Anion Gap 9 (5-15); BUN 8 mg/dL (7-18); Calcium,Total 8.6 mg/dL (8.5-10.1); Chloride 106 mmol/L (98-107); EST Glomerular Filtration Rate 78 mL/min (>60); Est Glom Filt Rate - Afr Amer 95 mL/min (>60); Glucose 92 mg/dL (74-106); Lipase 186 U/L (73-393); Potassium 3.5 mmol/L (3.5-5.1); Sodium Level 139 mmol/L (136-145); Thyroid Stim Hormone (TSH) 5.74 uIU/mL (0.358-3.74)
== END ==
LOC: MFPLAB 09:03
PROVIDERS: PCP Family Medicine; Referring Provider Family Medicine; Visit Provider Registered Nurse
DX: R10.9 Unspecified abdominal pain (principal); E03.9 Hypothyroidism, unspecified
CPT/HCPCS: 36415; 80048; 82150; 83690; 84443; 84450; 84460; 85025

== ENCOUNTER → 2021-04-14 13:54 | Outpatient (CLI) | payer BC, SELFPAY ==
--- NOTE | 2021-04-14 16:20 | CT_ITS ---
INDICATION: ABD PAIN EXAMINATION: CT Abdomen And Pelvis W/ Contrast Injection TECHNIQUE: Helically acquired images were obtained of the abdomen and pelvis after IV contrast. A radiation dose optimization technique was used for this scan. IV Contrast dosage and agent: Oral and amp; IV Gastrografin and amp; 100mL Isovue-300 Oral contrast: Yes. COMPARISON: None. FINDINGS: Visualized lung bases: Unremarkable Liver: Unremarkable Gallbladder: Surgically absent. Spleen: Unremarkable Pancreas: Unremarkable Adrenal Glands: Unremarkable Kidneys: Unremarkable Vasculature: Unremarkable GI Tract: Unremarkable Lymphadenopathy: None Peritoneum: No ascites. Bladder: Unremarkable Reproductive organs: Unremarkable Bones/Soft tissues: No suspicious osseous or soft tissue lesions CT/Abdomen/Pelvis WITH Contrast IMPRESSION: No acute abnormalities in the abdomen or pelvis. Electronically Signed: Timothy Gillespie MD at 17:10 EST Tel , Service support ,
== END ==
LOC: CT 13:56
PROVIDERS: PCP Family Medicine; Referring Provider Registered Nurse; Visit Provider Registered Nurse
DX: R10.9 Unspecified abdominal pain (principal)
CPT/HCPCS: 74177; Q9967

== ENCOUNTER 2021-09-02 17:00 | Outpatient (RCR) | payer OTHER, SELFPAY ==
--- NOTE | 2021-07-16 08:46 | HP.PTEVAL ---
Patient's Visit Information KRYSTINA GILBERT is a 55 year old F referred to Physical Therapy by SHWETA Serna with a diagnosis of L shoulder strain. Date of Evaluation: 07/15/21 Physical Therapist: Andrew Wright, PT, ATC - Visit Plan Frequency: 2-3x /Week Duration: 4-6 Weeks Plan: L shoulder stretching, PROM and MOBS, rot cuff strengthening, scap stab ex's, UBE, and HEP - Subjective Pt reports her L shoulder has been sore for 2 months. Pt reports she had the same thing happen to her R shoulder in 2018, and it took 18 mos to heal. Pt reports she injured her L shoulder while attempting to apply her seatbelt. Pt reports she waited for about 2 mos but the pain didnt relieve, so she went to her doctor. Pt reports she had xrays taken at that time, which reveqaled no significant findings. Pt notes she has difficulty with any reaching overhead activity. Pt reports she has been on a steroid for about a week, which has really helped to decrease her pain. Pt notes she has sleep difficuty at this time secondary to pain. Pt is R hand dominant. 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 Pt reports her L shoulder pain is 4/10 at rest and on steroids, 9/10 pain prior to being on steroids one week ago. - Pain R shoulder Pain Intensity (Out of 10): 4 Pain Intensity Range: 9 - Objective Neuro: B LE sensation is WNL to light touch. B bicepital reflex= 1/3. MMT: R shoulder flex= 8.2, abd, 15.5, ER= 14.7, IR= 15.7; L shoulder flex= 8.2, abd= 9, ER= 13, IR= 12. ROM: R shoulder flex= 155, abd= 135; L shoulder flex= 95, abd= 80. Special tests: Pos empty can and HK signs. Palpation: Pt is very tender along distribution of the supraspinatus - Balance/Special Test Scores Quick DASH Score: 56.8175 - Goals Goal 1:: Decrease L shoulder pain x 50% to aid with sleep Goal Time Frame: 4-6 Weeks Goal 2:: Increase L shoulder flex and abd ROM x 30 degrees to aid with overhead lifting Goal Time Frame: 4-6 Weeks Goal 3:: Increase L shoulder strength x 5#F to aid with IADL's Goal Time Frame: 4-6 Weeks Goal 4:: I with HEP Goal Time Frame: 4-6 Weeks - Rehabilitation Potential Physical Therapy Diagnosis: Pt has L shoulder pain, weakness, and limited ROM secondary to L shoulder strain Rehabilitation Potential: Good - Anticipated Interventions Patient/Client Instruction: Educate patient on: Condition, Plan of Care For the Purpose of:: To decrease pain, To increase ROM, To improve muscle performance and motor function Therapeutic Exercise to Include: Strength training, Flexibilty training, Active ROM, Scapular Strength/Stabilization For the Purpose of:: To decrease pain, To increase ROM, To improve muscle performance and motor function Manual Therapy Techniques to Include: Soft tissue mobilization For the Purpose of:: To decrease pain Cryotherapy (ice pack, ice massage): Yes For the Purpose of:: To decrease pain Thank you for the opportunity to evaluate your patient. For Medicare and Medicare HMO plans, please review the plan of care and approve it. It will need to be FAXED BACK to us at [phone] for Medicare purposes. For Medicare only, by signing this I certify the plan of care. Please let me know if there are questions or concerns regarding this plan of care. Physician Signature: Date:
--- NOTE | 2021-09-02 17:29 | HP.PTDCSUM_ITS ---
It has been my pleasure to treat KRYSTINA GILBERT referred by SHWETA Serna, with the diagnosis of L shoulder strain (Frozen Shoulder) for a total of 13 visit(s). Discharge Date: Please see the following information for a summary of their discharge status. Subjective: Pt reports mild pain today R shoulder Pain Intensity (Out of 10): 2 % Improvement: 40 Objective/Function: L shoulder pain 07/08. L shoulder ROM: flex= 92, abd= 72. L shoulder MMT: flex= 6, abd= 12, ER= 11, IR= 12 #F. Pt is showing good progression with pain, but little progression with ROM Goal 1:: Decrease L shoulder pain x 50% to aid with sleep Goal Progress: Progressing Goal 2:: Increase L shoulder flex and abd ROM x 30 degrees to aid with overhead lifting Goal 3:: Increase L shoulder strength x 5#F to aid with IADL's Goal 4:: I with HEP Plan: Discharge to [facility] If there are questions or concerns regarding this patient's physical therapy, waldo garber feel free to call me at [phone]. Thank you for the referral of this patient. Sincerely, Andrew Wright, PT, ATC Balance/Gait/Functional tests - Balance/Special Test Scores Quick DASH Score: 56.8175
== END 2021-09-02 19:00 | disposition home or self-care (01) ==
LOC: PT 17:00
PROVIDERS: PCP Family Medicine; Referring Provider Physician Assistant; Visit Provider Physician Assistant
DX: M25.512 Pain in left shoulder (principal); M75.02 Adhesive capsulitis of left shoulder; S43.492D Other sprain of left shoulder joint, subsequent encounter
CPT/HCPCS: 97110; 97140; 97161; 97164

== ENCOUNTER → 2021-09-21 | Outpatient (CLI) | payer OTHER, SELFPAY ==
[2021-09-21 17:56] LABS: Hematocrit 43.2 % (37-47); Hemoglobin 13.7 g/dL (12.0-15.0); Mean Corp Hgb Conc 31.7 g/dL (32-36); Mean Corpuscular Hgb 30.2 pg (27.0-32.0); Mean Corpuscular Volume 95.2 fL (81-99); Mean Platelet Vol. 11.9 fl (6.2-12.0); Platelet Count 252 K/mm3 (150-450); RBC Distribution Width CV 12.9 % (11.6-14.6); Red Blood Count 4.54 M/mm3 (4.2-5.4); White Blood Count 8.5 K/mm3 (4.4-11.0)
[2021-09-21 18:20] LABS: Erythrocyte Sedimentation Rate 26 mm/hr (0-30)
[2021-09-21 19:55] LABS: Vitamin B12 244 pg/mL (211-911); Vitamin D,25 Hydroxy 21.2 ng/mL
[2021-09-21 21:00] LABS: ALB/GLOB Ratio 0.7 RATIO (0.9-2.4); AST(SGOT) 18 U/L (15-37); Alanine Aminotransfer ALT/SGPT 22 U/L (13-56); Albumin, Serum 3.1 g/dL (3.2-5.0); Alkaline Phosphatase 81 U/L (45-117); Anion Gap 11 (5-15); BUN 12 mg/dL (7-18); BUN/Creat Ratio 12.5 RATIO (10-20); Calcium,Total 8.9 mg/dL (8.5-10.1); Chloride 106 mmol/L (98-107); Cholesterol 286 mg/dL (200); Creatinine, Serum 0.96 mg/dL (0.55-1.02); EST Glomerular Filtration Rate 64 mL/min (>60); Est Glom Filt Rate - Afr Amer 77 mL/min (>60); Ferritin 81 ng/mL (8-252); Globulin 4.3 g/dL (2.2-4.2); Glucose 101 mg/dL (74-106); High Density Lipoprotein 67 mg/dL; Iron 61 ug/dL (50-170); Potassium 4.1 mmol/L (3.5-5.1); Protein, Total 7.4 g/dL (6.4-8.2); Sodium Level 138 mmol/L (136-145); T4 Free Direct 1.18 ng/dL (0.76-1.46); Triglycerides 233 mg/dL; Very Low Density Lipoprotein 47 mg/dL (5-40)
== END | disposition home or self-care (01) ==
LOC: MFPLAB 16:35
PROVIDERS: PCP Family Medicine; Referring Provider Family Medicine; Visit Provider Family Medicine
DX: Z00.00 Encounter for general adult medical examination without abnormal findings (principal); R53.83 Other fatigue; E03.9 Hypothyroidism, unspecified; E55.9 Vitamin D deficiency, unspecified
CPT/HCPCS: 36415; 80053; 80061; 82306; 82607; 82728; 83540; 84439; 84443; 85027; 85652

== ENCOUNTER 2022-02-02 11:12 | Day surgery (SDC) | payer OTHER, SELFPAY ==
[2022-02-02] VITALS (10 sets, daily range): BP systolic 104–134; BP diastolic 63–74; PULSE 69–90; RESP 16–18; TEMP 36.3–36.6; O2SAT 93–100; BMI 33.1
--- NOTE | 2022-02-02 | ESO_PTH ---
PATIENT: KRYSTINA GILBERT LOC: EN U#:[id number] AGE/SX: 56/F ROOM: RE02/02/[address]: Dr. Everardo Holder DO : 1965 BED: DIS: 02/02/2022 SPEC #: [id number] RECD: 02/02/22 14:34 STATUS: LEOPOLDO ANDRE #: [id number] REGULO: 02/02/22 00:[address]: Everardo Holder DEPT: SURGICAL PATHOLOGY RECD BY: Fritz Severino ENTERED: 02/03/22 08:47 SP TYPE: DIDI CHONG DR: Dr. Timothy Garcia MD Tissues: Esophagus, NOS Procedures: Special Stain Group II Surgery Specimen Level IV Alcian Blue/PAS (control) HEADER OPERATION: Colonoscopy, EGD with biopsy ([facility] [place]) PRE-OP DIAGNOSIS: Abdominal pain, screening, GERD TISSUE SUBMITTED: Distal esophagus biopsy MICROSCOPIC DIAGNOSIS Distal esophagus, biopsy: Gastroesophageal junctional mucosa with chronic inflammation. Focal changes of reflux. No evidence of goblet cell metaplasia. See comment. AM:steve 02/04/2022 COMMENT Alcian blue/PAS stain with matched control supports the above diagnosis. MICROSCOPIC DESCRIPTION Slides are reviewed. GROSS DESCRIPTION Received in fixative is one container labeled with the patient's name and designated distal esophagus biopsy. The specimen consists of two irregular fragments of light ch soft tissue that in aggregate measure 0.7 x 0.3 x 0.1 cm. The specimen is totally submitted in one cassette. / SJ:steve 02/03/2022 TC:3 CPT: 48737, 43746
--- NOTE | 2022-02-02 11:29 | HP.PCM_ITS ---
History and Physical Date of Admission: 02/02/22 SONJA GILBERT, is a 56 F who presents to the office today for Initial consult. Sonja established with this clinic 12.13.21. She is due for screening colonoscopy but was not eligible for open access due to loose stools or diarrhea and upper abdominal bloating/fullness with varying frequency with worsening following PO intake since cholecystectomy 06.11.2019. Food triggers include salads and bananas. She has not changed her diet for s/p cholecystectomy as she was told her body would adjust. PMH hypothyroidism; vitamin D deficiency FH uncle colon cancer. US gallbladder 06.10.19 with liver measurement 17.2cm with fatty infiltration; positive sonographic Duran?s sign. CT abd/pel 04.14.21 for abdominal pain noting normal liver. Remaining exam without abnormality. ROS Const Constitutional: No anorexia, fatigue, fever(s), weight change or sleep problems Eyes Eyes: No change in vision ENT ENT: No abnormal hearing, difficulty swallowing, mouth lesions, tongue swelling or throat swelling Resp Respiratory: No cough or shortness of breath Cardio Cardiology: No chest pain at rest, chest pain with exertion, shortness of breath or dyspnea on exertion Gastro GI: No difficulty swallowing Genitourinary-Female: No difficulty urinating or burning urination Musc Musculoskeletal: No joint pain, joint swelling, muscle weakness or decreased muscle mass Skin Skin: No hair loss in leg, yellowing of the eye, itchy eyes, rash, skin ulcer or skin swelling Neuro Neurology: No abnormal hearing, abnormal movements, confusion, unsteady gait/balance or memory loss Psych Psychiatric: No anxiety, No confusion and No memory loss Endo Endocrine: No fatigue or weight change Aller/Imm Allergy/Immunologic: No itchy eyes, throat swelling or tongue swelling Dany/Lymp Hematologic/Lymphatic: No easy bleeding, easy bruising or enlarged lymph nodes Exam Const General: cooperative and comfortable Nutritional Appearance: average body habitus and well nourished HENMT Head: normal to inspection Ears: hearing grossly normal bilaterally Nose: external nose normal Face and sinus: normal facial exam Mouth: oral mucosae normal Throat: posterior oropharynx normal Eyes General: appearance normal, both eyes and all related structures Neck Neck: normal visual inspection Chest Chest palpation & inspection: normal inspection of the chest and normal palpation of entire chest wall Resp Effort & Inspection: normal respiratory effort Auscultation: Bilateral: Clear to Auscultation Cardio Palpation: normal PMI Rate: regular rate Rhythm: regular rhythm GI Inspection: normal to inspection Auscultation: normal bowel sounds Percussion: normal to percussion Palpation: no hepatosplenomegaly Skin General: no rashes or lesions noted Neuro General: patient alert Extrem General: normal to inspection Psych Affect: normal affect Quality Reporting Tobacco Screening ([facility] 138) Smoking Status: Former smoker Assessment and Plan Assessment and Plan (1) Abdominal pain: ?Status:?Acute ?Plan: I think a lot of her bloating.? Also on the differential diagnosis would be gastritis associated with NSAIDs or bile gastritis due to her getting her gallbladder out.? She will undergo an upper endoscopy to evaluate upper GI tract.? We will also give her pantoprazole 40 mg a day to hopefully help with some abdominal pain and bloating she is experiencing. (2) Encounter for screening colonoscopy: ?Status:?Acute ?Plan: She should undergo colonoscopy for evaluation of her lower GI tract in the setting of intermittent diarrhea.? She was explained alternatives, risk, benefits including outstanding bleeding, infection, sepsis, perforation, need for urgent .? She will have an ASA of 1.? The differential diagnosis for her diarrhea would be bile acid diarrhea with bowel disease, IBS with diarrhea.? I do not suspect any chronic infection but we will take stool samples during the procedure. (3) GERD (gastroesophageal reflux disease): ?Status:?Acute ?Plan: She has been experiencing a lot of gastroesophageal reflux disease.? I will start her on pantoprazole therapy 40 mg a day.? She will also get screened for Toribio's esophagus.? She is at risk for Toribio's esophagus due to worsening reflux disease in the patient that has a history of nicotine addiction in the past. ? ? ? Medications: New alprazolam ?? take one tab one hour prior to presenting to the hospital 1 mg? PO DAILY 2 tabs 0RF MDD 2 ? ? I have re-examined the patient. There are no clinical changes since date of exam.
[2022-02-02] MEDS: Lactated Ringers 1,000 ML 15 ML IV (11:40)
--- NOTE | 2022-02-02 12:59 | OP.EGD_ITS ---
Patient Name: Sonja Jiang Procedure Date: 02/02/2022 12:14 PM Date of : 1965 Age: 56 Procedure: Upper GI endoscopy Indications: Heartburn, Failure to respond to medical treatment Providers: Everardo Holder DO Medicines: Monitored Anesthesia Care Patient Profile: This is a 56 year old female. Refer to note in patient chart for documentation of history and physical. Patient has symptoms of acute dyspepsia and acute heartburn. Complications: No immediate complications. Procedure: Pre-Anesthesia Assessment: - Prior to the procedure, a History and Physical was performed, and patient medications and allergies were reviewed. The patient is competent. The risks and benefits of the procedure and the sedation options and risks were discussed with the patient. All questions were answered and informed consent was obtained. Patient identification and proposed procedure were verified by the physician in the pre-procedure area. Mental Status Examination: alert and oriented. Airway Examination: normal oropharyngeal airway and neck mobility. Respiratory Examination: clear to auscultation. CV Examination: normal. Prophylactic Antibiotics: The patient does not require prophylactic antibiotics. Prior Anticoagulants: The patient has taken no previous anticoagulant or antiplatelet agents. ASA Grade Assessment: II - A patient with mild systemic disease. After reviewing the risks and benefits, the patient was deemed in satisfactory condition to undergo the procedure. The anesthesia plan was to use monitored anesthesia care (MAC). Immediately prior to administration of medications, the patient was re-assessed for adequacy to receive sedatives. The heart rate, respiratory rate, oxygen saturations, blood pressure, adequacy of pulmonary ventilation, and response to care were monitored throughout the procedure. The physical status of the patient was re-assessed after the procedure. After obtaining informed consent, the endoscope was passed under direct vision. Throughout the procedure, the patient's blood pressure, pulse, and oxygen saturations were monitored continuously. The pediatric colonoscope was introduced through the mouth, and advanced to the second part of duodenum. The upper GI endoscopy was accomplished without difficulty. The patient tolerated the procedure well. Scope In: Scope Out: 12:33:55 PM Findings: LA Grade A (one or more mucosal breaks less than 5 mm, not extending between tops of 2 mucosal folds) esophagitis with no bleeding was found 37 to 38 cm from the incisors. Biopsies were taken with a cold forceps for histology. Verification of patient identification for the specimen was done. Estimated blood loss was minimal. A medium-sized hiatal hernia was present. The cardia and gastric fundus were normal on retroflexion. The second portion of the duodenum was normal. Impression: - LA Grade A reflux esophagitis. Biopsied. - Medium-sized hiatal hernia. - Normal second portion of the duodenum. Recommendation: - Discharge patient to home. - Resume previous diet. - Continue present medications. - Await pathology results. - Repeat upper endoscopy for surveillance based on pathology results. -Esomeprazole 40 mg p.o. twice daily and Carafate 1 g p.o. twice daily x4 to 6 weeks Procedure Code(s): --- Professional --- 65335, Esophagogastroduodenoscopy, flexible, transoral; with biopsy, single or multiple CPT copyright 2017 [employer]. All rights reserved. The codes documented in this report are preliminary and upon jammer hooker review may be revised to meet current compliance requirements. Everardo Holder DO 02/02/2022 12:58:59 PM This report has been signed electronically. Number of Addenda: 0 Note Initiated On: 02/02/2022 12:14 PM
--- NOTE | 2022-02-02 13:00 | OP.CCLET_ITS ---
02/02/2022 Ian Garcia [address] [place] [address] Re : Upper GI endoscopy procedure for Sonja Apolinar Dear Dr. Garcia This procedure was performed on Wednesday, February 02, 2022. My impressions and recommendations are as follows: Impressions : - LA Grade A reflux esophagitis. Biopsied. - Medium-sized hiatal hernia. - Normal second portion of the duodenum. Recommendations : - Discharge patient to home. - Resume previous diet. - Continue present medications. - Await pathology results. - Repeat upper endoscopy for surveillance based on pathology results. -Esomeprazole 40 mg p.o. twice daily and Carafate 1 g p.o. twice daily x4 to 6 weeks My findings are described in the full procedure note, which is enclosed. If I can be of further assistance, please feel free to contact me at . Sincerely, Everardo Holder, 02/02/2022 12:58:59 PM This report has been signed electronically.
--- NOTE | 2022-02-02 13:06 | OP.COLON_ITS ---
Patient Name: Sonja Jiang Procedure Date: 02/02/2022 12:34 PM Date of : 1965 Age: 56 Procedure: Colonoscopy Indications: Screening for colorectal malignant neoplasm Providers: Everardo Holder DO Medicines: Monitored Anesthesia Care Patient Profile: This is a 56 year old female. Refer to note in patient chart for documentation of history and physical. Patient has symptoms of acute dyspepsia and acute heartburn. Last Colonoscopy: none. The patient's first colonoscopy is today. Complications: No immediate complications. Procedure: Pre-Anesthesia Assessment: - Prior to the procedure, a History and Physical was performed, and patient medications and allergies were reviewed. The patient is competent. The risks and benefits of the procedure and the sedation options and risks were discussed with the patient. All questions were answered and informed consent was obtained. Patient identification and proposed procedure were verified by the physician in the pre-procedure area. Mental Status Examination: alert and oriented. Airway Examination: normal oropharyngeal airway and neck mobility. Respiratory Examination: clear to auscultation. CV Examination: normal. Prophylactic Antibiotics: The patient does not require prophylactic antibiotics. Prior Anticoagulants: The patient has taken no previous anticoagulant or antiplatelet agents. ASA Grade Assessment: II - A patient with mild systemic disease. After reviewing the risks and benefits, the patient was deemed in satisfactory condition to undergo the procedure. The anesthesia plan was to use monitored anesthesia care (MAC). Immediately prior to administration of medications, the patient was re-assessed for adequacy to receive sedatives. The heart rate, respiratory rate, oxygen saturations, blood pressure, adequacy of pulmonary ventilation, and response to care were monitored throughout the procedure. The physical status of the patient was re-assessed after the procedure. After I obtained informed consent, the scope was passed under direct vision. Throughout the procedure, the patient's blood pressure, pulse, and oxygen saturations were monitored continuously. The colonoscope was introduced through the anus and advanced to the terminal ileum. The colonoscopy was performed without difficulty. The patient tolerated the procedure well. The quality of the bowel preparation was good. Scope In: 12:36:03 PM Scope Withdrawal Time 0 hours 6 minutes 16 seconds Scope Out: 12:45:32 PM Total Procedure Duration Time 0 hours 9 minutes 29 seconds Findings: The perianal and digital rectal examinations were normal. A few small-mouthed diverticula were found in the recto-sigmoid colon and sigmoid colon. The exam was otherwise without abnormality on direct and retroflexion views. Impression: - Diverticulosis in the recto-sigmoid colon and in the sigmoid colon. - The examination was otherwise normal on direct and retroflexion views. - No specimens collected. Recommendation: - Discharge patient to home. - Resume previous diet. - Repeat colonoscopy for screening purposes. - Continue present medications. Procedure Code(s): --- Professional --- G0121, Colorectal cancer screening; colonoscopy on individual not meeting criteria for high risk CPT copyright 2017 [employer]. All rights reserved. The codes documented in this report are preliminary and upon microbiology instructor review may be revised to meet current compliance requirements. Everardo Holder DO 02/02/2022 1:06:04 PM This report has been signed electronically. Number of Addenda: 0 Note Initiated On: 02/02/2022 12:34 PM
--- NOTE | 2022-02-02 13:07 | OP.CCLET_ITS ---
02/02/2022 Ian Garcia [address] [place] [address] Re : Colonoscopy procedure for Sonja Jiang Dear Dr. Garcia This procedure was performed on Wednesday, February 02, 2022. My impressions and recommendations are as follows: Impressions : - Diverticulosis in the recto-sigmoid colon and in the sigmoid colon. - The examination was otherwise normal on direct and retroflexion views. - No specimens collected. Recommendations : - Discharge patient to home. - Resume previous diet. - Repeat colonoscopy for screening purposes. - Continue present medications. My findings are described in the full procedure note, which is enclosed. If I can be of further assistance, please feel free to contact me at . Sincerely, Everardo Holder, 02/02/2022 1:06:04 PM This report has been signed electronically.
== END 2022-02-02 14:49 | disposition home or self-care (01) ==
LOC: EN 11:13 → AC 11:16
PROVIDERS: PCP Family Medicine; Referring Provider Internal Medicine Gastroenterology; Visit Provider Internal Medicine Gastroenterology
PROC: 0DJD8ZZ Inspection of Lower Intestinal Tract, Via Natural or Artificial Opening Endoscopic (ICD-10-PCS; CPT 45378; principal; 2022-02-02 12:25)
DX: Z12.11 Encounter for screening for malignant neoplasm of colon (principal); K21.00 Gastro-esophageal reflux disease with esophagitis, without bleeding; K44.9 Diaphragmatic hernia without obstruction or gangrene; K57.30 Diverticulosis of large intestine without perforation or abscess without bleeding; E03.9 Hypothyroidism, unspecified; Z79.899 Other long term (current) drug therapy; Z87.891 Personal history of nicotine dependence
CPT/HCPCS: 45378; 43239; 88305; 88313; J7120; J2405

== ENCOUNTER → 2022-11-30 | Outpatient (CLI) | payer OTHER, SELFPAY ==
[2022-11-30 09:27] LABS: Vitamin B12 279 pg/mL (211-911); Vitamin D,25 Hydroxy 22.8 ng/mL
[2022-11-30 09:35] LABS: Anion Gap 6 (5-15); BUN 9 mg/dL (7-18); BUN/Creat Ratio 10.2 RATIO (10-20); Calcium,Total 8.8 mg/dL (8.5-10.1); Chloride 105 mmol/L (98-107); Cholesterol 263 mg/dL (200); Creatinine, Serum 0.89 mg/dL (0.55-1.02); EST Glomerular Filtration Rate 70 mL/min (>60); Est Glom Filt Rate - Afr Amer 84 mL/min (>60); Glucose 107 mg/dL (74-106); High Density Lipoprotein 34 mg/dL; Potassium 3.7 mmol/L (3.5-5.1); Sodium Level 139 mmol/L (136-145); T4 Free Direct 1.28 ng/dL (0.76-1.46); Triglycerides 643 mg/dL
[2022-12-05 15:08] LABS: Beef <0.10 kU/L (Class 0); Chocolate <0.10 kU/L (Class 0); Corn <0.10 kU/L (Class 0); Egg, Whole <0.10 kU/L (Class 0); Milk (Cow) <0.10 kU/L (Class 0); Peanut <0.10 kU/L (Class 0); Pork <0.10 kU/L (Class 0); Soybean <0.10 kU/L (Class 0); Wheat <0.10 kU/L (Class 0)
[2022-12-06 16:12] LABS: Thyroid Stim Hormone (TSH) 1.48 uIU/mL (0.358-3.74)
== END | disposition home or self-care (01) ==
LOC: LAB 08:21
PROVIDERS: PCP Family Medicine; Referring Provider Internal Medicine Gastroenterology; Visit Provider Internal Medicine Gastroenterology
DX: E03.9 Hypothyroidism, unspecified (principal); R10.9 Unspecified abdominal pain; R14.0 Abdominal distension (gaseous); K21.9 Gastro-esophageal reflux disease without esophagitis; R53.83 Other fatigue; E55.9 Vitamin D deficiency, unspecified
CPT/HCPCS: 36415; 80048; 80061; 82306; 82607; 84439; 84443; 86003; 86005

== ENCOUNTER → 2022-12-12 | Outpatient (CLI) | payer OTHER, SELFPAY ==
--- NOTE | 2022-12-12 12:08 | NM_ITS ---
CLINICAL: 57-year-old female with history of abdominal bloating and gastroesophageal reflux disease. SEMI-SOLID PHASE 99m Tc SULFUR COLLOID GASTRIC EMPTYING STUDY COMPARISON: None available FINDINGS: The patient was administered 1.1 mCi of 99m Tc sulfur colloid mixed with oatmeal and consumed per os. Image acquisitions in the anterior-posterior projections were obtained for 60 minutes. There is prompt visualization of the stomach. There is no gastroesophageal reflux identified. The T ? linear fit was calculated to be 55.9 minutes, (Normal: 12-56 minutes). NM/Gastric Emptying Study IMPRESSION: 1. NORMAL 99m Tc sulfur colloid semi-solid phase (oatmeal) gastric emptying imaging examination. A. There is upper limits of normal and preserved semi-solid phase gastric emptying compared to normal controls with maintained first order kinetics throughout all components of the examination. (Johnny et al, J Nucl Med Tech 38: 186, 2010). Electronically Signed: Joey Nielson, at 20:20 EDT ,
== END | disposition home or self-care (01) ==
LOC: NM 12:06
PROVIDERS: PCP Family Medicine; Referring Provider Internal Medicine Gastroenterology; Visit Provider Internal Medicine Gastroenterology
DX: R14.0 Abdominal distension (gaseous) (principal); K21.9 Gastro-esophageal reflux disease without esophagitis
CPT/HCPCS: 78264; A9541

== ENCOUNTER 2022-12-15 11:20 | Emergency (ER) | payer OTHER, SELFPAY ==
[2022-12-15 11:22] VITALS: BP 165/85; PULSE 77; RESP 14; TEMP 36.3; O2SAT 98; BMI 34.2
--- NOTE | 2022-12-15 11:50 | EDS_ITS ---
HPI HPI - GI History of Present Illness Chief Complaint: Abd Pain Informant: patient Abdominal Pain/Flank Pain Onset: Hours (couple) Context: Sudden Onset Timing: Intermittent Quality: Aching Location: Epigastric, RUQ and Right Flank (upper) Current Severity: Gone Maximum Severity: Severe Worsened by: Nothing Relieved by: Nothing Nausea/Vomiting/Emesis GI Symptom: Positive for Nausea; Negative for Vomiting Diarrhea/Melena/Hematochezia GI Symptom: Negative for Diarrhea, Melena or Hematochezia Associated Symptoms Associated Symptoms: Negative for Dysuria, Frequency or Hematuria Narrative Narrative: Patient having an episode of colicky right upper quadrant pain that is also in her epigastrium and into her right mid back. Some nausea but no vomiting. This is the third time this is happened, the last time she had an episode was a couple weeks ago, the time before that was last fall, she had a CT scan for it that she states was unremarkable. Saw Dr. Holder for it, not in the ER but had a CT here. Follows with Dr. Holder for functional GI issues, she had her gallbladder out remotely. States she has been feeling fine lately otherwise, no dyspnea or cough recently. No fevers or chills or jaundice or confusion. No urinary symptoms. [facility] Medical History Acute calculous cholecystitis Alcohol use Arthritis Diarrhea Fatigue Former smoker Frozen shoulder Gastric reflux Hypothyroidism Low iron Shortness of breath on exertion Syncope Vitamin D deficiency Wears contact lenses Home Medications ibuprofen 200 mg tablet 400 mg PO DAILY PRN PRN Not Specified 06/10/19 [History Last Taken 06/09/19] levothyroxine 100 mcg tablet 112 mcg PO DAILY thyroid 06/10/19 [History Last Taken 06/09/19] norgestimate 0.18 mg/0.215 mg/0.25 mg-ethinyl estradiol 25 mcg tablet 1 tab PO DAILY cycle 06/10/19 [History Last Taken 06/09/19] pseudoephedrine-ibuprofen 30 mg-200 mg tablet 1 tab PO DAILY PRN PRN Sinus Congestion 06/10/19 [History Last Taken 06/09/19] alprazolam 1 mg tablet 1 mg PO DAILY #2 tabs 12/13/21 [Rx Last Taken 02/02/22 10:30] esomeprazole magnesium 40 mg capsule,delayed release 40 mg PO BID #60 caps 02/02/22 [Rx Last Taken Unknown] prednisone 20 mg tablet 20 mg PO DAILY #7 tabs 02/24/22 [Rx Last Taken Unknown] pantoprazole 40 mg tablet,delayed release 40 mg PO DAILY ##90 05/24/22 [Rx Last Taken Unknown] sucralfate 1 gram tablet (Carafate) 1 g PO BID #60 tabs 11/16/22 [Rx Last Taken Unknown] dicyclomine 10 mg capsule 20 mg (2 x 10 mg) PO Q6H PRN PRN abdominal pain #30 CAPSULES 12/15/22 [Rx Last Taken Unknown] Allergy/AdvReac Type Severity Reaction Status Date / Time No Known Allergies Allergy Verified 12/15/22 11:21 Family History Mother Afib Dementia Hypercholesteremia Osteoporosis Breast cancer Father No problems noted. Sister Hypercholesteremia Sister Leukemia Brother Hypertension Other Colon cancer Surgical History History of cholecystectomy (~06/2019) Tubal ligation status Social History Smoking Status: Former smoker ROS ROS ED Constitutional Constitutional ED: Denies chills or fever(s) Eyes Eyes: Denies change in vision or diplopia ENT ENT ED: Denies rhinorrhea or sore throat Cardiovascular Cardiovascular: Denies chest pain or palpitations Respiratory/Chest Respiratory/Chest: Denies cough or dyspnea Gastrointestinal Gastrointestinal: Reports abdominal pain and nausea; Denies diarrhea, melena or vomiting Genitourinary Genitourinary ED: Denies dysuria or hematuria Musculoskeletal Musculoskeletal: Reports back pain; Denies neck pain Integumentary Denies abscess or rash Neurologic Neurologic: Denies headache(s), paresthesias or weakness Psychiatric Psychiatric: Denies anxiety or suicidal thoughts EXAM Physical Exam Const Vital Signs: 12/15/22 11:22 12/15/22 13:20 Temperature 97.3 F L Temperature Source Temporal Pulse Rate 77 Respiratory Rate 14 18 Blood Pressure 165/85 H Blood Pressure Mean 111 Pulse Ox 98 Oxygen Delivery Method Room Air Positive well nourished and well developed General Appearance ED: well developed and NAD HEENT Reports moist mucous membranes normocephalic and atraumatic Eyes PERRL and EOMs intact bilaterally Neck full ROM and supple Resp normal respiratory effort and clear to auscultation bilaterally Cardio regular rate, regular rhythm and no murmurs GI non-tender and non-distended Auscultation: normoactive bowel sounds Palpation: soft Back/Spine no CVA tenderness General Back: other FROM Extremity normal to inspection General Extremety ED: Negative for edema, pulses abnormal or tenderness General Extremity: Negative for edema or pulses abnormal Neuro oriented x3, CN's II-XII intact bilaterally and no sensory deficits noted Sensorium / Orientation: awake and alert Motor Exam: strength 5/5 throughout Skin no rashes or lesions noted and no wounds MDM MDM MDM Narrative Medical decision making narrative: Patient was given Zofran, GI cocktail, and dicyclomine. On reevaluation she is feeling much better. Given that she has had prior cholecystectomy, I suspect this is some type of functional GI pain. She was wondering if it was gas, certainly not able to rule that out, but difficult to rule in here with studies. I did do labs including liver enzymes given her pain in that area right upper quadrant, those are all normal including white blood count, liver enzymes, lipase. At this time she is feeling much better, I think she is stable for discharge home and I will prescribe her dicyclomine to use as needed and have her follow-up with GI as needed she is comfortable with that plan. Lab Data Attestation: I reviewed the patient's lab results. Labs: Laboratory Results - last 24 hr 12/15/22 12:07 WBC 9.6 RBC 4.48 Hgb 13.5 Hct 41.8 MCV 93.3 MCH 30.1 MCHC 32.3 RDW Std Deviation 42.7 RDW Coeff of Wilbur 12.4 Plt Count 262 MPV 10.9 Immature Gran % (Auto) 0.200 Neut % (Auto) 76.5 H Lymph % (Auto) 16.3 L [place] % (Auto) 5.9 Eos % (Auto) 0.7 Baso % (Auto) 0.4 Absolute Neuts (auto) 7.3 Absolute Lymphs (auto) 1.56 Nucleated RBC % 0 Sodium 138 Potassium 3.5 Chloride 108 H Carbon Dioxide 24.0 Anion Gap 6 BUN 11 Creatinine 1.00 Estim Creat Clear Calc 52.95 Est GFR (MDRD) Af Amer 73 Est GFR (MDRD) Non-Af 61 BUN/Creatinine Ratio 11.0 Glucose 133 H Calcium 8.4 L Total Bilirubin 0.20 AST 12 L ALT 13 Alkaline Phosphatase 84 Total Protein 7.1 Albumin 3.0 L Globulin 4.1 Albumin/Globulin Ratio 0.7 L Lipase 51 Discharge Plan Triage Chief Complaint: Abd Pain ED Provider: Tony Liang Dx/Rx/DC Orders Clinical Impression: Right sided abdominal pain Instructions: Abdominal Pain Prescriptions: New dicyclomine 10 mg capsule 20 mg PO Q6H PRN PRN (Reason: abdominal pain) Qty: 30 0RF No Action alprazolam 1 mg tablet 1 mg PO DAILY MDD 2 Qty: 2 0RF Rx Instructions: take one tab one hour prior to presenting to the hospital prednisone 20 mg tablet 20 mg PO DAILY Qty: 7 0RF pantoprazole 40 mg tablet,delayed release (DR/EC) 40 mg PO DAILY Qty: 90 3RF levothyroxine 100 tablet 112 mcg PO DAILY pseudoephedrine-ibuprofen 1 EACH tablet 1 tab PO DAILY PRN PRN (Reason: Sinus Congestion) ibuprofen 200 MG tablet 400 mg PO DAILY PRN PRN (Reason: Not Specified) norgestimate-ethinyl estradiol 1 EACH tablet 1 tab PO DAILY esomeprazole magnesium 40 mg capsule,delayed release(DR/EC) 40 mg PO BID Qty: 60 1RF sucralfate [Carafate] 1 gram tablet 1 g PO BID Qty: 60 1RF Primary Care Provider: Ian Garcia Referrals: Ian Garcia MD [Primary Care Provider] - Everardo Holder DO [Med Staff - Active Staff] - As Needed Disposition Disposition: Home, Self Care
[2022-12-15 12:12] LABS: Absolute Lymphocyte Count 1.56 X10^3/uL (0.83-4.51); Absolute Neutrophil Count 7.3 X10^3/uL (2.0-7.7); Basophil# 0.04 X10^3/uL; Basophil% 0.4 % (0-1); Eosinophil# 0.07 X10^3/uL; Eosinophils% 0.7 % (0-5); Hematocrit 41.8 % (37-47); Hemoglobin 13.5 g/dL (12.0-15.0); Lymphocyte # 1.56 X10^3/ul (0.83-4.51); Lymphocyte % 16.3 % (19-41); Mean Corp Hgb Conc 32.3 g/dL (32-36); Mean Corpuscular Hgb 30.1 pg (27.0-32.0); Mean Corpuscular Volume 93.3 fL (81-99); Mean Platelet Vol. 10.9 fl (6.2-12.0); Monocyte# 0.56 X10^3/uL; Monocyte% 5.9 % (0-10); NRBC Flagged by Analyzer 0 % (0-5); Neutrophil # 7.31 X10^3/uL (2.7-7.7); Neutrophil % 76.5 % (47-70); Platelet Count 262 K/mm3 (150-450); RBC Distribution Width CV 12.4 % (11.6-14.6); RBC Distribution Width SD 42.7 fl (35.1-43.9); Red Blood Count 4.48 M/mm3 (4.2-5.4); White Blood Count 9.6 K/mm3 (4.4-11.0)
[2022-12-15] MEDS: Dicyclomine 10 MG Capsule 20 MG PO (12:17)
[2022-12-15] MEDS: Mag Hydrox/Al Hydrox/Simeth 30 ML UDC PO (12:17)
[2022-12-15 12:29] LABS: ALB/GLOB Ratio 0.7 RATIO (0.9-2.4); AST(SGOT) 12 U/L (15-37); Alanine Aminotransfer ALT/SGPT 13 U/L (13-56); Alkaline Phosphatase 84 U/L (45-117); Anion Gap 6 (5-15); BUN 11 mg/dL (7-18); Calcium,Total 8.4 mg/dL (8.5-10.1); Chloride 108 mmol/L (98-107); EST Glomerular Filtration Rate 61 mL/min (>60); Est Glom Filt Rate - Afr Amer 73 mL/min (>60); Estimated Creatinine Clearance 52.95 ml/min; Globulin 4.1 g/dL (2.2-4.2); Glucose 133 mg/dL (74-106); Lipase 51 U/L (13-75); Potassium 3.5 mmol/L (3.5-5.1); Protein, Total 7.1 g/dL (6.4-8.2); Sodium Level 138 mmol/L (136-145)
[2022-12-15] MEDS: Ondansetron 4 MG/2 ML Vial IV (12:51)
[2022-12-15 13:20] VITALS: RESP 18
== END 2022-12-15 14:37 | disposition home or self-care (01) ==
PROVIDERS: Emergency Provider Emergency Medicine; PCP Family Medicine; Visit Provider Emergency Medicine
DX: R10.11 Right upper quadrant pain (principal); R11.2 Nausea with vomiting, unspecified; Z87.891 Personal history of nicotine dependence; M54.9 Dorsalgia, unspecified; Z90.49 Acquired absence of other specified parts of digestive tract
CPT/HCPCS: 80053; 83690; 85025; 96374; 99284; A4216; J2405

== ENCOUNTER 2022-12-27 12:02 | Outpatient (RCR) | payer OTHER, SELFPAY | END 2022-12-29 23:59 | LOC: NS 12:02 | PROVIDERS: PCP Family Medicine; Referring Provider Internal Medicine Gastroenterology; Visit Provider Internal Medicine Gastroenterology | DX: Z71.3 Dietary counseling and surveillance (principal); E66.9 Obesity, unspecified; R10.9 Unspecified abdominal pain; R14.0 Abdominal distension (gaseous); K21.9 Gastro-esophageal reflux disease without esophagitis | CPT/HCPCS: 97802 ==

== ENCOUNTER 2023-02-06 11:58 | Outpatient (RCR) | payer OTHER, SELFPAY | END 2023-02-28 23:59 | LOC: NS 11:58 | PROVIDERS: PCP Family Medicine; Referring Provider Internal Medicine Gastroenterology; Visit Provider Internal Medicine Gastroenterology | DX: Z71.3 Dietary counseling and surveillance (principal); E66.9 Obesity, unspecified; R10.9 Unspecified abdominal pain; R14.0 Abdominal distension (gaseous); K21.9 Gastro-esophageal reflux disease without esophagitis; Z68.33 Body mass index [BMI] 33.0-33.9, adult | CPT/HCPCS: 97803 ==

== ENCOUNTER 2023-03-07 11:44 | Outpatient (RCR) | payer OTHER, SELFPAY | END 2023-03-30 23:59 | LOC: NS 11:44 | PROVIDERS: PCP Family Medicine; Referring Provider Internal Medicine Gastroenterology; Visit Provider Internal Medicine Gastroenterology | DX: Z71.3 Dietary counseling and surveillance (principal); E66.9 Obesity, unspecified; R10.9 Unspecified abdominal pain; R14.0 Abdominal distension (gaseous); K21.9 Gastro-esophageal reflux disease without esophagitis; Z68.33 Body mass index [BMI] 33.0-33.9, adult | CPT/HCPCS: 97803 ==

== ENCOUNTER → 2023-03-07 | Outpatient (CLI) | payer OTHER, SELFPAY ==
[2023-03-07 12:43] LABS: Vitamin B12 644 pg/mL (211-911); Vitamin D,25 Hydroxy 45.8 ng/mL
[2023-03-07 12:53] LABS: Cholesterol 241 mg/dL (200); High Density Lipoprotein 56 mg/dL; Thyroid Stim Hormone (TSH) 3.97 uIU/mL (0.358-3.74); Triglycerides 314 mg/dL; Very Low Density Lipoprotein 63 mg/dL (5-40)
[2023-03-08 11:10] LABS: T4 Free Direct 1.09 ng/dL (0.76-1.46)
== END | disposition home or self-care (01) ==
LOC: LAB 11:36
PROVIDERS: PCP Family Medicine; Referring Provider Family Medicine; Visit Provider Family Medicine
DX: E03.9 Hypothyroidism, unspecified (principal); E55.9 Vitamin D deficiency, unspecified; E53.8 Deficiency of other specified B group vitamins; E78.1 Pure hyperglyceridemia
CPT/HCPCS: 36415; 80061; 82306; 82607; 84439; 84443

== ENCOUNTER 2023-05-09 11:59 | Outpatient (RCR) | payer OTHER, SELFPAY | END 2023-05-31 23:59 | LOC: NS 11:59 | PROVIDERS: PCP Family Medicine; Referring Provider Internal Medicine Gastroenterology; Visit Provider Internal Medicine Gastroenterology | DX: Z71.3 Dietary counseling and surveillance (principal); E66.9 Obesity, unspecified; R10.9 Unspecified abdominal pain; R14.0 Abdominal distension (gaseous); K21.9 Gastro-esophageal reflux disease without esophagitis; Z68.33 Body mass index [BMI] 33.0-33.9, adult | CPT/HCPCS: 97803 ==

== ENCOUNTER → 2023-10-02 | Outpatient (CLI) | payer OTHER, SELFPAY ==
[2023-10-02 15:04] LABS: Absolute Lymphocyte Count 2.04 X10^3/uL (0.83-4.51); Absolute Neutrophil Count 3.9 X10^3/uL (2.0-7.7); Basophil# 0.07 X10^3/uL; Eosinophil# 0.23 X10^3/uL; Eosinophils% 3.4 % (0-5); Hematocrit 44.2 % (37-47); Hemoglobin 13.7 g/dL (12.0-15.0); Lymphocyte # 2.04 X10^3/ul (0.83-4.51); Lymphocyte % 29.8 % (19-41); Mean Corpuscular Hgb 28.8 pg (27.0-32.0); Mean Corpuscular Volume 92.9 fL (81-99); Monocyte# 0.55 X10^3/uL; NRBC Flagged by Analyzer 0 % (0-5); Neutrophil # 3.94 X10^3/uL (2.7-7.7); Neutrophil % 57.5 % (47-70); Platelet Count 283 K/mm3 (150-450); RBC Distribution Width CV 12.8 % (11.6-14.6); RBC Distribution Width SD 43.8 fl (35.1-43.9); Red Blood Count 4.76 M/mm3 (4.2-5.4); White Blood Count 6.9 K/mm3 (4.4-11.0)
[2023-10-02 15:55] LABS: ALB/GLOB Ratio 0.8 RATIO (0.9-2.4); AST(SGOT) 24 U/L (15-37); Alanine Aminotransfer ALT/SGPT 36 U/L (13-56); Albumin, Serum 3.6 g/dL (3.2-5.0); Alkaline Phosphatase 139 U/L (45-117); Anion Gap 5 (5-15); BUN 12 mg/dL (7-18); BUN/Creat Ratio 13.9 RATIO (10-20); Calcium,Total 9.7 mg/dL (8.5-10.1); Chloride 107 mmol/L (98-107); Cholesterol 250 mg/dL (200); Creatinine, Serum 0.87 mg/dL (0.55-1.02); EST Glomerular Filtration Rate 71 mL/min (>60); Est Glom Filt Rate - Afr Amer 86 mL/min (>60); Globulin 4.3 g/dL (2.2-4.2); Glucose 95 mg/dL (74-106); High Density Lipoprotein 48 mg/dL; Protein, Total 7.9 g/dL (6.4-8.2); Sodium Level 139 mmol/L (136-145); T4 Free Direct 1.33 ng/dL (0.76-1.46); Triglycerides 150 mg/dL; Very Low Density Lipoprotein 30 mg/dL (5-40)
== END | disposition home or self-care (01) ==
LOC: MFPLAB 11:57
PROVIDERS: PCP Family Medicine; Visit Provider Family Medicine
DX: E03.9 Hypothyroidism, unspecified (principal); J02.9 Acute pharyngitis, unspecified; E78.1 Pure hyperglyceridemia; K21.9 Gastro-esophageal reflux disease without esophagitis
CPT/HCPCS: 36415; 80053; 80061; 84439; 85025

== ENCOUNTER → 2024-06-11 | Outpatient (CLI) | payer OTHER, SELFPAY ==
[2024-06-11 15:24] LABS: Hematocrit 45.1 % (37-47); Hemoglobin 14.4 g/dL (12.0-15.0); Mean Corp Hgb Conc 31.9 g/dL (32-36); Mean Corpuscular Hgb 29.4 pg (27.0-32.0); Mean Corpuscular Volume 92.2 fL (81-99); Mean Platelet Vol. 11.7 fl (6.2-12.0); Platelet Count 278 K/mm3 (150-450); RBC Distribution Width CV 12.8 % (11.6-14.6); RBC Distribution Width SD 43.4 fl (35.1-43.9); Red Blood Count 4.89 M/mm3 (4.2-5.4); White Blood Count 6.9 K/mm3 (4.4-11.0)
[2024-06-11 16:45] LABS: ALB/GLOB Ratio 0.9 RATIO (0.9-2.4); AST(SGOT) 54 U/L (15-37); Alanine Aminotransfer ALT/SGPT 81 U/L (13-56); Albumin, Serum 3.7 g/dL (3.2-5.0); Alkaline Phosphatase 109 U/L (45-117); Anion Gap 6 (5-15); BUN 13 mg/dL (7-18); BUN/Creat Ratio 15.1 RATIO (10-20); Calcium,Total 9.5 mg/dL (8.5-10.1); Chloride 104 mmol/L (98-107); Cholesterol 282 mg/dL (200); Creatinine, Serum 0.86 mg/dL (0.55-1.02); EST Glomerular Filtration Rate 72 mL/min (>60); Est Glom Filt Rate - Afr Amer 87 mL/min (>60); Globulin 4.2 g/dL (2.2-4.2); Glucose 94 mg/dL (74-106); High Density Lipoprotein 58 mg/dL; Potassium 3.7 mmol/L (3.5-5.1); Protein, Total 7.9 g/dL (6.4-8.2); Sodium Level 138 mmol/L (136-145); T4 Free Direct 1.09 ng/dL (0.76-1.46); Triglycerides 238 mg/dL; Very Low Density Lipoprotein 48 mg/dL (5-40)
== END | disposition home or self-care (01) ==
LOC: MFPLAB 12:14
PROVIDERS: PCP Family Medicine; Referring Provider Family Medicine; Visit Provider Family Medicine
DX: E78.5 Hyperlipidemia, unspecified (principal); K21.9 Gastro-esophageal reflux disease without esophagitis; E03.9 Hypothyroidism, unspecified
CPT/HCPCS: 36415; 80053; 80061; 84439; 84443; 85027